=== PATIENT | female | born 1990 | race Caucasian/White ===

== ENCOUNTER → 2018-11-03 | Outpatient (CLI) | payer BC ==
[2018-11-03 07:39] LABS: Basophils % (A) 1 %; Eosinophils # (A) 0.3 k/uL (0-0.7); Eosinophils % (A) 4 %; HCT 38.6 % (34.0-46.0); HGB 12.5 gm/dL (11.4-16.0); Lymphocytes # (A) 1.8 k/uL (1.0-4.8); Lymphocytes % (A) 24 %; MCH 27.6 pg (25.0-35.0); MCHC 32.3 g/dL (31.0-37.0); MCV 85.3 fL (80.0-100.0); Mean Platelet Volume 6.6; Monocytes # (A) 0.6 k/uL (0-1.0); Monocytes % (A) 8 %; Neutrophils # (A) 4.5 k/uL (1.3-7.7); Neutrophils % (A) 62 %; Platelet Count 475 k/uL (150-450); RBC 4.53 m/uL (3.80-5.40); RDW 13.9 % (11.5-15.5); WBC 7.3 k/uL (3.8-10.6)
--- NOTE | 2018-11-03 07:42 | US ---
EXAMINATION TYPE: US abdomen complete DATE OF EXAM: 11/03/2018 COMPARISON: NONE CLINICAL HISTORY: epigastric pain R10.13,R10.11. x 1.5 months. Nausea vomiting with episodes of pain . EXAM MEASUREMENTS: Liver Length: 14.8 cm Gallbladder Wall: 0.1 cm CBD: 0.2 cm Spleen: 8.5 cm Right Kidney: 10.9 x 5.2 x 4.9 cm Left Kidney: 10.6 X 5.5 X 5.1 cm Pancreas: Partially Obscured by bowel gas Liver: wnl Gallbladder: No stones seen Evidence for sonographic Segura's sign: No CBD: wnl Spleen: wnl Right Kidney: No hydronephrosis or masses seen Left Kidney: No hydronephrosis or masses seen Upper IVC: wnl Abd Aorta: wnl The liver is homogenous. The intrahepatic portion of the IVC and proximal abdominal aorta are within normal limits. There is no evidence of cholelithiasis. Common bile duct is unremarkable. The visu alized portions of the pancreas are homogenous. The spleen is unremarkable. Kidneys are symmetric a nd free of hydronephrosis. No renal lesions are seen. IMPRESSION: No distinct abnormality appreciated.
[2018-11-03 07:56] LABS: ALT 33 U/L (9-52); AST 24 U/L (14-36); Albumin 3.7 g/dL (3.5-5.0); Alkaline Phosphatase 84 U/L (38-126); Amylase 46 U/L (30-110); Anion Gap 5 mmol/L; Blood Urea Nitrogen 14 mg/dL (7-17); Calcium 9.1 mg/dL (8.4-10.2); Carbon Dioxide 28 mmol/L (22-30); Chloride 107 mmol/L (98-107); Glucose 79 mg/dL (74-99); Lipase 79 U/L (23-300); Sodium 140 mmol/L (137-145); Total Bilirubin 0.5 mg/dL (0.2-1.3); Total Protein 6.7 g/dL (6.3-8.2)
== END ==
LOC: RADUSWWP 06:45
PROVIDERS: ATTEND Family Medicine
DX: R10.13 Epigastric pain (principal); R10.11 Right upper quadrant pain
CPT/HCPCS: 36415; 76700; 80053; 82150; 83690; 85025

== ENCOUNTER 2018-11-10 09:21 | Inpatient (IN) | payer BC ==
[2018-11-10] MEDS ORDERED: MAG HYDROX/AL HYDROX/SIMETH 30 ML, HYOSCYAMINE ELIXIR 10 ML, CIMETIDINE HCL 300 MG, LID... PO STA ×4 (10:10)
[2018-11-10] MEDS ORDERED: SODIUM CHLORIDE 0.9% 1,000 ML IV ONE (10:11)
[2018-11-10 10:17] LABS: Amorphous Sediment,Urine Occasional /hpf; Appearance,Urine Cloudy (Clear); Bilirubin,Urine Negative (Negative); Blood,Urine Negative (Negative); Color,Urine Yellow; Glucose,Urine (UA) Negative (Negative); Ketones,Urine 2+ (Negative); Leukocyte Esterase,Urine Negative (Negative); Mucus,Urine Rare /hpf; Nitrite,Urine Negative (Negative); PH, Urine 8.5 (5.0-8.0); Protein,Urine 1+ (Negative); Squamous Epithelial Cell,Urine 5 /hpf (0-4); Urobilinogen,Urine <2.0 mg/dL (<2.0); WBC,Urine 1 /hpf (0-5)
[2018-11-10 10:29] LABS: Basophils % (A) 0 %; Eosinophils # (A) 0.1 k/uL (0-0.7); Eosinophils % (A) 1 %; HCT 39.3 % (34.0-46.0); Lymphocytes # (A) 0.7 k/uL (1.0-4.8); Lymphocytes % (A) 6 %; MCH 27.7 pg (25.0-35.0); MCHC 33.1 g/dL (31.0-37.0); MCV 83.8 fL (80.0-100.0); Mean Platelet Volume 6.6; Monocytes # (A) 0.3 k/uL (0-1.0); Monocytes % (A) 3 %; Neutrophils # (A) 10.7 k/uL (1.3-7.7); Neutrophils % (A) 91 %; Platelet Count 514 k/uL (150-450); RBC 4.69 m/uL (3.80-5.40); RDW 13.6 % (11.5-15.5); WBC 11.8 k/uL (3.8-10.6)
[2018-11-10 10:42] LABS: ALT 36 U/L (9-52); AST 29 U/L (14-36); Albumin 4.2 g/dL (3.5-5.0); Alkaline Phosphatase 117 U/L (38-126); Amylase 64 U/L (30-110); Anion Gap 7 mmol/L; Blood Urea Nitrogen 16 mg/dL (7-17); Carbon Dioxide 27 mmol/L (22-30); Chloride 106 mmol/L (98-107); Glucose 113 mg/dL (74-99); Lipase 81 U/L (23-300); Potassium 4.4 mmol/L (3.5-5.1); Sodium 140 mmol/L (137-145); Total Bilirubin 0.9 mg/dL (0.2-1.3); Total Protein 7.4 g/dL (6.3-8.2)
--- NOTE | 2018-11-10 10:58 | CT ---
EXAMINATION TYPE: CT abdomen pelvis w con DATE OF EXAM: 11/10/2018 HISTORY: epigastric pain CT DLP: 832.2mGycm Automated Exposure Control for Dose Reduction was Utilized. CONTRAST: CT scan of the abdomen and pelvis is performed without oral but with IV Contrast, patient injected wi th 100 mL of Isovue 300. COMPARISON: Complete abdominal ultrasound 1 week ago. FINDINGS: LUNG BASES: Dependent atelectasis both bases is present. LIVER/GB: No significant abnormality is appreciated. PANCREAS: No significant abnormality is seen. SPLEEN: No significant abnormality is seen. ADRENALS: No significant abnormality is seen. KIDNEYS: No significant abnormality is seen. BOWEL: Evaluation of bowel is suboptimal secondary to lack of enteric contrast. Fecal material is see n in nondistended colon. Cecum is felt within normal limits in the right lower quadrant. There is mil d wall thickening of the terminal ileum seen coronal image 44 which is poorly distended. There is mil d to moderate wall thickening of the distal ileum over a short to moderate segment extending into the pelvis proximal to this. In the pelvis there are fluid-filled dilated small bowel loops measuring up to 4.8 cm in diameter axial image 72 with mild to moderate wall thickening with abrupt transition at site of moderate wall thickening right pelvis axial image 71 and coronal image 45. There are air-flu id levels and prominent in dilated distal small bowel loops in the lower abdomen and upper pelvis. St omach is satisfactorily distended without suspicious wall thickening. Duodenum is poorly distended an d thus suboptimally evaluated. UTERUS/ADNEXA: Anteverted uterus is seen extending to the right of midline. LYMPH NODES: No greater than 1cm abdominal or pelvic lymph nodes are appreciated. OSSEOUS STRUCTURES: No significant abnormality is seen. OTHER: No significant additional abnormality is seen. IMPRESSION: There is distal small bowel obstruction likely on basis of a moderate distal enteritis wi th abrupt transition involving the distal ileum. Correlate for underlying inflammatory bowel or Crohn 's disease.
[2018-11-10] MEDS ORDERED: PIPERACILLIN-TAZOBACTAM 3.375 GM in SODIUM CHLORIDE 0.9% 100 ML IVPB STA (11:12)
[2018-11-10] MEDS ORDERED: MORPHINE SULFATE 4 MG/ML SYRINGE IV PRN (11:12)
[2018-11-10] MEDS ORDERED: ONDANSETRON 4 MG/2 ML VIAL IVP PRN (11:12)
[2018-11-10] MEDS ORDERED: NALOXONE 0.4 MG/ML 1 ML VIAL IV PRN (11:12)
--- NOTE | 2018-11-10 11:16 | ED ---
Abdominal Pain HPI - General Chief Complaint: Abdominal Pain Stated Complaint: abd pain Time Seen by Provider: 11/10/18 09:36 Source: patient Mode of arrival: ambulatory Limitations: no limitations - History of Present Illness Initial Comments: 28-year-old female presenting today for chief complaint of epigastric abdominal pain. Patient states the past 4 days she has had on and off epigastric pain. She states that it began this morning at 2 AM she states has been persistent and painful. She describes as sharp she denies any radiation. Patient denies any alleviating or aggravating factors. Patient states she had bowel movement this morning. Patient states she discussed his problem with primary care provider and has had outpatient US with no acute abnormalities. Patient was concerned symptoms persisted and presented for evaluation. Remaining review of systems negative patient denies fever chills night sweats jaundice melena hematochezia diarrhea vomiting chest pain or SOB. Upon arrival pt appears well, nontoxic. - Related Data Home Medications Medication Instructions Recorded Confirmed ALPRAZolam [Xanax] 0.25 mg PO BID PRN 11/10/18 11/10/18 Ca-D Glucarate 2 tab PO DAILY 11/10/18 11/10/18 Chococal 2 tab PO DAILY 11/10/18 11/10/18 Hci Plus 2 cap PO DAILY 11/10/18 11/10/18 Omeprazole 20 mg PO DAILY 11/10/18 11/10/18 buPROPion [Wellbutrin] 100 mg PO TID 11/10/18 11/10/18 Allergies Allergy/AdvReac Type Severity Reaction Status Date / Time procaine HCl [From Novocain] AdvReac Nausea & Verified 11/10/18 09:45 Vomiting sulfamethoxazole AdvReac Hallucinati Verified 11/10/18 09:45 [From Bactrim] ons trimethoprim [From Bactrim] AdvReac Hallucinati Verified 11/10/18 09:45 ons Review of Systems ROS Statement: Those systems with pertinent positive or pertinent negative responses have been documented in the HPI. ROS Other: All systems not noted in ROS Statement are negative. Past Medical History Past Medical History: No Reported History History of Any Multi-Drug Resistant Organisms: None Reported Past Surgical History: No Surgical Hx Reported Past Psychological History: No Psychological Hx Reported Smoking Status: Never smoker Past Alcohol Use History: None Reported Past Drug Use History: None Reported - Past Family History Father Family Medical History: No Reported History Additional Family Medical History / Comment(s): Father is a smoker. Mother Family Medical History: Cancer Additional Family Medical History / Comment(s): Leukemia. Mother is a smoker General Exam - General Exam Comments Initial Comments: General: The patient is awake and alert, in no distress, and does not appear acutely ill. Eye: Pupils are equal, round and reactive to light, extra-ocular movements are intact. No nystagmus. There is normal conjunctiva bilaterally. No signs of icterus. Ears, nose, mouth and throat: There are moist mucous membranes and no oral lesions. Neck: The neck is supple, there is no tenderness or JVD. Cardiovascular: There is a regular rate and rhythm. No murmur, rub or gallop is appreciated. Respiratory: Lungs are clear to auscultation, respirations are non-labored, breath sounds are equal. No wheezes, stridor, rales, or rhonchi. Gastrointestinal: Soft, non-distended, patient is tender to palpation of the epigastric region without masses or organomegaly noted. There is no rebound or guarding present. No CVA tenderness. Bowel sounds are unremarkable. Musculoskeletal: Normal ROM, no tenderness. Strength 5/5. Sensation intact. Pulses equal bilaterally 2+. Neurological: A&O x 3. CN II-XII intact, There are no obvious motor or sensory deficits. Coordination appears grossly intact. Speech is normal. Skin: Skin is warm and dry and no rashes or lesions are noted. Psychiatric: Cooperative, appropriate mood & affect, normal judgment. Limitations: no limitations Course Vital Signs 11/10/18 11/10/18 09:32 12:08 Temperature 98.5 F 98.5 F Pulse Rate 117 H 102 H Respiratory 18 18 Rate Blood Pressure 109/79 123/83 O2 Sat by Pulse 97 100 Oximetry Medical Decision Making - Medical Decision Making 28-year-old female presenting today for chief complaint epigastric pain. Ultrasound obtained earlier in the week he abnormalities. CT of the abdomen pelvis revealed air-fluid levels and findings consistent with small bowel obstruction of the jejunum. Patient was ordered nothing by mouth. Started on Zosyn. Patient given IV analgesics. Patient will be admitted for surgical consultation. Dr. Hunt attending provider is agreeable with plan and admission at this time. He spoke with the admitting provider no further orders at this time. Patient is agreeable to admission AND straight answer to the best lability prior to transfer to the floor. Patient remained stable in the emergency department. - Lab Data Result diagrams: 11/10/18 10:15 11/10/18 10:15 Lab Results 11/10/18 11/10/18 11/10/18 Range/Units 10:02 10:02 10:15 WBC (3.8-10.6) k/uL RBC (3.80-5.40) m/uL Hgb (11.4-16.0) gm/dL Hct (34.0-46.0) % MCV (80.0-100.0) fL MCH (25.0-35.0) pg MCHC (31.0-37.0) g/dL RDW (11.5-15.5) % Plt Count (150-450) k/uL Neutrophils % % Lymphocytes % % Monocytes % % Eosinophils % % Basophils % % Neutrophils # (1.3-7.7) k/uL Lymphocytes # (1.0-4.8) k/uL Monocytes # (0-1.0) k/uL Eosinophils # (0-0.7) k/uL Basophils # (0-0.2) k/uL ESR (0-20) mm/hr Sodium 140 (137-145) mmol/L Potassium 4.4 (3.5-5.1) mmol/L Chloride 106 (98-107) mmol/L Carbon Dioxide 27 (22-30) mmol/L Anion Gap 7 mmol/L BUN 16 (7-17) mg/dL Creatinine 0.66 (0.52-1.04) mg/dL Est GFR (CKD-EPI)AfAm >90 (>60 ml/min/1.73 sqM) Est GFR (CKD-EPI)NonAf >90 (>60 ml/min/1.73 sqM) Glucose 113 H (74-99) mg/dL Calcium 9.0 (8.4-10.2) mg/dL Total Bilirubin 0.9 (0.2-1.3) mg/dL AST 29 (14-36) U/L ALT 36 (9-52) U/L Alkaline Phosphatase 117 (38-126) U/L C-Reactive Protein (<10.0) mg/L Total Protein 7.4 (6.3-8.2) g/dL Albumin 4.2 (3.5-5.0) g/dL Amylase 64 (30-110) U/L Lipase 81 (23-300) U/L Urine Color Yellow Urine Appearance Cloudy H (Clear) Urine pH 8.5 H (5.0-8.0) Ur Specific Titus 1.030 (1.001-1.035) Urine Protein 1+ H (Negative) Urine Glucose (UA) Negative (Negative) Urine Ketones 2+ H (Negative) Urine Blood Negative (Negative) Urine Nitrite Negative (Negative) Urine Bilirubin Negative (Negative) Urine Urobilinogen <2.0 (<2.0) mg/dL Ur Leukocyte Esterase Negative (Negative) Urine WBC 1 (0-5) /hpf Ur Squamous Epith Cells 5 H (0-4) /hpf Amorphous Sediment Occasional H (None) /hpf Urine Mucus Rare H (None) /hpf Urine HCG, Qual Not Detected (Not Detectd) 11/10/18 11/10/18 11/10/18 Range/Units 10:15 10:15 10:15 WBC 11.8 H (3.8-10.6) k/uL RBC 4.69 (3.80-5.40) m/uL Hgb 13.0 (11.4-16.0) gm/dL Hct 39.3 (34.0-46.0) % MCV 83.8 (80.0-100.0) fL MCH 27.7 (25.0-35.0) pg MCHC 33.1 (31.0-37.0) g/dL RDW 13.6 (11.5-15.5) % Plt Count 514 H (150-450) k/uL Neutrophils % 91 % Lymphocytes % 6 % Monocytes % 3 % Eosinophils % 1 % Basophils % 0 % Neutrophils # 10.7 H (1.3-7.7) k/uL Lymphocytes # 0.7 L (1.0-4.8) k/uL Monocytes # 0.3 (0-1.0) k/uL Eosinophils # 0.1 (0-0.7) k/uL Basophils # 0.0 (0-0.2) k/uL ESR 15 (0-20) mm/hr Sodium (137-145) mmol/L Potassium (3.5-5.1) mmol/L Chloride (98-107) mmol/L Carbon Dioxide (22-30) mmol/L Anion Gap mmol/L BUN (7-17) mg/dL Creatinine (0.52-1.04) mg/dL Est GFR (CKD-EPI)AfAm (>60 ml/min/1.73 sqM) Est GFR (CKD-EPI)NonAf (>60 ml/min/1.73 sqM) Glucose (74-99) mg/dL Calcium (8.4-10.2) mg/dL Total Bilirubin (0.2-1.3) mg/dL AST (14-36) U/L ALT (9-52) U/L Alkaline Phosphatase (38-126) U/L C-Reactive Protein 13.9 H (<10.0) mg/L Total Protein (6.3-8.2) g/dL Albumin (3.5-5.0) g/dL Amylase (30-110) U/L Lipase (23-300) U/L Urine Color Urine Appearance (Clear) Urine pH (5.0-8.0) Ur Specific Titus (1.001-1.035) Urine Protein (Negative) Urine Glucose (UA) (Negative) Urine Ketones (Negative) Urine Blood (Negative) Urine Nitrite (Negative) Urine Bilirubin (Negative) Urine Urobilinogen (<2.0) mg/dL Ur Leukocyte Esterase (Negative) Urine WBC (0-5) /hpf Ur Squamous Epith Cells (0-4) /hpf Amorphous Sediment (None) /hpf Urine Mucus (None) /hpf Urine HCG, Qual (Not Detectd) Disposition Clinical Impression: Small bowel obstruction, Abdominal pain, Dehydration, Urine ketones, Vomiting, Leukocytosis Disposition: ADMITTED IP TO THIS [facility] Condition: Stable Is patient prescribed a controlled substance at d/c from ED?: No Time of Disposition: 11:15 Decision to Admit Reason: Admit from EC Decision Date: 11/10/18 Decision Time: 11:15
[2018-11-10] MEDS: SODIUM CHLORIDE 0.9% 1,000 ML IV SCH ×2 (12:06→21:15)
[2018-11-10] MEDS ORDERED: ACETAMINOPHEN TAB 325 MG TAB PO STA (12:37)
--- NOTE | 2018-11-10 15:28 | P.GSCN ---
History of Present Illness Consult date: 11/10/18 Reason for Consult: Small bowel obstruction History of present illness: This is a 28-year-old female who is admitted through the emergency room with complaints of abdominal pain and nausea. Patient states that she vomited multiple times last night. Patient CAT scan performed which shows a possible small bowel obstruction. Small bowel obstruction may be due to enteritis. Patient currently denies any significant abdominal pain or nausea. She states that she has had 3 or 4 attacks of similar symptoms over the last year. Past Medical History Past Medical History: GERD/Reflux, Pneumonia Additional Past Medical History / Comment(s): Headaches r/t menses, bronchitis, joint pain. History of Any Multi-Drug Resistant Organisms: None Reported Past Surgical History: No Surgical Hx Reported Additional Past Surgical History / Comment(s): wisdom teeth extractions Past Anesthesia/Blood Transfusion Reactions: No Reported Reaction Smoking Status: Never smoker - Past Family History Father Family Medical History: No Reported History Additional Family Medical History / Comment(s): Father is a smoker. Mother Family Medical History: Cancer Additional Family Medical History / Comment(s): Leukemia. Mother is a smoker Medications and Allergies Home Medications Medication Instructions Recorded Confirmed Type ALPRAZolam [Xanax] 0.25 mg PO BID PRN 11/10/18 11/10/18 History Ca-D Glucarate 2 tab PO DAILY 11/10/18 11/10/18 History Chococal 2 tab PO DAILY 11/10/18 11/10/18 History Hci Plus 2 cap PO DAILY 11/10/18 11/10/18 History Omeprazole 20 mg PO DAILY 11/10/18 11/10/18 History buPROPion [Wellbutrin] 100 mg PO TID 11/10/18 11/10/18 History Allergies Allergy/AdvReac Type Severity Reaction Status Date / Time procaine HCl [From Novocain] AdvReac Nausea & Verified 11/10/18 09:45 Vomiting sulfamethoxazole AdvReac Hallucinati Verified 11/10/18 09:45 [From Bactrim] ons trimethoprim [From Bactrim] AdvReac Hallucinati Verified 11/10/18 09:45 ons Surgical - Exam Vital Signs Temp Pulse Resp BP Pulse Ox 98.5 F 117 H 18 109/79 97 11/10/18 09:32 11/10/18 09:32 11/10/18 09:32 11/10/18 09:32 11/10/18 09:32 - General well developed, well nourished, no distress - Eyes PERRL - ENT normal pinna - Neck no masses - Respiratory normal expansion - Cardiovascular Rhythm: regular - Abdomen Abdomen: soft, non tender Results - Labs 11/10/18 10:15 11/10/18 10:15 Abnormal Lab Results - Last 24 Hours (Table) 11/10/18 11/10/18 11/10/18 Range/Units 10:02 10:15 10:15 WBC 11.8 H (3.8-10.6) k/uL Plt Count 514 H (150-450) k/uL Neutrophils # 10.7 H (1.3-7.7) k/uL Lymphocytes # 0.7 L (1.0-4.8) k/uL Glucose 113 H (74-99) mg/dL Urine Appearance Cloudy H (Clear) Urine pH 8.5 H (5.0-8.0) Urine Protein 1+ H (Negative) Urine Ketones 2+ H (Negative) Ur Squamous Epith Cells 5 H (0-4) /hpf Amorphous Sediment Occasional H (None) /hpf Urine Mucus Rare H (None) /hpf Diabetes panel 11/10/18 Range/Units 10:15 Sodium 140 (137-145) mmol/L Potassium 4.4 (3.5-5.1) mmol/L Chloride 106 (98-107) mmol/L Carbon Dioxide 27 (22-30) mmol/L BUN 16 (7-17) mg/dL Creatinine 0.66 (0.52-1.04) mg/dL Glucose 113 H (74-99) mg/dL Calcium 9.0 (8.4-10.2) mg/dL AST 29 (14-36) U/L ALT 36 (9-52) U/L Alkaline Phosphatase 117 (38-126) U/L Total Protein 7.4 (6.3-8.2) g/dL Albumin 4.2 (3.5-5.0) g/dL Calcium panel 11/10/18 Range/Units 10:15 Calcium 9.0 (8.4-10.2) mg/dL Albumin 4.2 (3.5-5.0) g/dL Pituitary panel 11/10/18 Range/Units 10:15 Sodium 140 (137-145) mmol/L Potassium 4.4 (3.5-5.1) mmol/L Chloride 106 (98-107) mmol/L Carbon Dioxide 27 (22-30) mmol/L BUN 16 (7-17) mg/dL Creatinine 0.66 (0.52-1.04) mg/dL Glucose 113 H (74-99) mg/dL Calcium 9.0 (8.4-10.2) mg/dL Adrenal panel 11/10/18 Range/Units 10:15 Sodium 140 (137-145) mmol/L Potassium 4.4 (3.5-5.1) mmol/L Chloride 106 (98-107) mmol/L Carbon Dioxide 27 (22-30) mmol/L BUN 16 (7-17) mg/dL Creatinine 0.66 (0.52-1.04) mg/dL Glucose 113 H (74-99) mg/dL Calcium 9.0 (8.4-10.2) mg/dL Total Bilirubin 0.9 (0.2-1.3) mg/dL AST 29 (14-36) U/L ALT 36 (9-52) U/L Alkaline Phosphatase 117 (38-126) U/L Total Protein 7.4 (6.3-8.2) g/dL Albumin 4.2 (3.5-5.0) g/dL - Imaging CT scan - abdomen: report reviewed (Small bowel obstruction with transition point in distal ileum.) Assessment and Plan Assessment: Ethan obstruction. Patient be observed. She'll undergo repeat CAT scan to see if her small bowel obstruction has improved. If there is no resolution of this she will undergo exploratory laparotomy with possible small bowel resection.
[2018-11-10] MEDS ORDERED: KETOROLAC 30 MG/ML 1 ML VIAL IVP PRN (15:47)
[2018-11-10] MEDS ORDERED: ALPRAZolam 0.25 MG TAB PO PRN (15:56)
--- NOTE | 2018-11-10 16:03 | P.HPIM ---
History of Present Illness Patient is a pleasant 28-year-old female came in with complaints of severe abdominal pain nausea vomiting multiple episodes which started last night lasted until today morning. Patient the pain is better still have moderate amount of pain at this time diffuse pain nonradiating sharp in nature. Patient had a CAT scan of the abdomen which showed air-fluid levels consistent with a gastritis about obstruction patient had normal bowel movements. Patient appears to have significant enteritis mostly involving the distal ileum suspicious for Crohn's ileitis. Patient had similar symptoms about 4 episodes in the last few months. Initially thought to have well gastroenteritis. Patient is presently night shifts general surgery was consulted Gen. surgery evaluated the patient and discussed with Gen. surgery recommending conservative measures including, including nothing by mouth except for ice chips and if she doesn't improve recommending laparotomy. Patient denied any family history of Crohn's disease. Review of Systems REVIEW OF SYSTEMS: CONSTITUTIONAL: No fever, no malaise, no fatigue. HEENT: No recent visual problems or hearing problems. Denied any sore throat. CARDIOVASCULAR: No chest pain, orthopnea, PND, no palpitations, no syncope. PULMONARY: No shortness of breath, no cough, no hemoptysis. GASTROINTESTINAL: As mentioned in HPI NEUROLOGICAL: No headaches, no weakness, no numbness. HEMATOLOGICAL: Denies any bleeding or petechiae. GENITOURINARY: Denies any burning micturition, frequency, or urgency. MUSCULOSKELETAL/RHEUMATOLOGICAL: Denies any joint pain, swelling, or any muscle pain. ENDOCRINE: Denies any polyuria or polydipsia. The rest of the 14-point review of systems is negative. Past Medical History Past Medical History: GERD/Reflux, Pneumonia Additional Past Medical History / Comment(s): Headaches r/t menses, bronchitis, joint pain. History of Any Multi-Drug Resistant Organisms: None Reported Past Surgical History: No Surgical Hx Reported Additional Past Surgical History / Comment(s): wisdom teeth extractions Past Anesthesia/Blood Transfusion Reactions: No Reported Reaction Smoking Status: Never smoker - Past Family History Father Family Medical History: No Reported History Additional Family Medical History / Comment(s): Father is a smoker. Mother Family Medical History: Cancer Additional Family Medical History / Comment(s): Leukemia. Mother is a smoker Medications and Allergies Home Medications Medication Instructions Recorded Confirmed Type ALPRAZolam [Xanax] 0.25 mg PO BID PRN 11/10/18 11/10/18 History Ca-D Glucarate 2 tab PO DAILY 11/10/18 11/10/18 History Chococal 2 tab PO DAILY 11/10/18 11/10/18 History Hci Plus 2 cap PO DAILY 11/10/18 11/10/18 History Omeprazole 20 mg PO DAILY 11/10/18 11/10/18 History buPROPion [Wellbutrin] 100 mg PO TID 11/10/18 11/10/18 History Allergies Allergy/AdvReac Type Severity Reaction Status Date / Time procaine HCl [From Novocain] AdvReac Nausea & Verified 11/10/18 09:45 Vomiting sulfamethoxazole AdvReac Hallucinati Verified 11/10/18 09:45 [From Bactrim] ons trimethoprim [From Bactrim] AdvReac Hallucinati Verified 11/10/18 09:45 ons Physical Exam Vitals: Vital Signs Temp Pulse Pulse Resp BP BP Pulse Ox 11/10/18 14:34 97.6 F 115 H 16 125/80 100 11/10/18 12:24 98.0 F 100 16 131/84 97 11/10/18 12:08 98.5 F 102 H 18 123/83 100 11/10/18 09:32 98.5 F 117 H 18 109/79 97 Intake and Output 11/10/18 11/10/18 11/10/18 06:59 14:59 22:59 Other: Weight 72.575 kg PHYSICAL EXAMINATION: GENERAL: The patient is alert and oriented x3, not in any acute distress. Well developed, well nourished. HEENT: Pupils are round and equally reacting to light. EOMI. No scleral icterus. No conjunctival pallor. Normocephalic, atraumatic. No pharyngeal erythema. No thyromegaly. CARDIOVASCULAR: S1 and S2 present. No murmurs, rubs, or gallops. PULMONARY: Chest is clear to auscultation, no wheezing or crackles. ABDOMEN: minimal diffuse tenderness with mild distention, , normoactive bowel sounds. No palpable organomegaly. MUSCULOSKELETAL: No joint swelling or deformity. EXTREMITIES: No cyanosis, clubbing, or pedal edema. NEUROLOGICAL: Gross neurological examination did not reveal any focal deficits. SKIN: No rashes. Results CBC & Chem 7: 11/10/18 10:15 11/10/18 10:15 Labs: Abnormal Lab Results - Last 24 Hours (Table) 11/10/18 11/10/18 11/10/18 Range/Units 10:02 10:15 10:15 WBC 11.8 H (3.8-10.6) k/uL Plt Count 514 H (150-450) k/uL Neutrophils # 10.7 H (1.3-7.7) k/uL Lymphocytes # 0.7 L (1.0-4.8) k/uL Glucose 113 H (74-99) mg/dL Urine Appearance Cloudy H (Clear) Urine pH 8.5 H (5.0-8.0) Urine Protein 1+ H (Negative) Urine Ketones 2+ H (Negative) Ur Squamous Epith Cells 5 H (0-4) /hpf Amorphous Sediment Occasional H (None) /hpf Urine Mucus Rare H (None) /hpf Thrombosis Risk Factor Assmnt - Choose All That Apply Any of the Below Risk Factors Present?: Yes Each Factor Represents 1 point: Obesity (BMI >25) Other Risk Factors: No Other congenital or acquired thrombophilia - If yes, enter type in comment: No Thrombosis Risk Factor Assessment Total Risk Factor Score: 1 Thrombosis Risk Factor Assessment Level: Low Risk Assessment and Plan Plan: Abdominal pain nausea vomiting: Secondary to either enteritis and partial small bowel obstruction conservative measures general surgery evaluation as mentioned above, with IV fluids shifts advance diet as tolerated. Crohn's colitis is definitely a consideration considering her multiple recent episodes, age involvement of distal small bowel. -Leukocytosis reactive Have and tachycardia secondary to possible intravascular volume depletion and pain DVT prophylaxis: Early ambulation
[2018-11-10] MEDS: PANTOPRAZOLE 40 MG/10 ML VIAL IVP SCH (16:41)
[2018-11-10] MEDS: buPROPion 100 MG TAB PO SCH ×2 (16:41→21:15)
[2018-11-11] MEDS: SODIUM CHLORIDE 0.9% 1,000 ML IV SCH ×2 (06:47→14:49)
[2018-11-11 08:12] LABS: Anion Gap 5 mmol/L; Blood Urea Nitrogen 9 mg/dL (7-17); Calcium 8.2 mg/dL (8.4-10.2); Carbon Dioxide 22 mmol/L (22-30); Chloride 114 mmol/L (98-107); Glucose 79 mg/dL (74-99); Potassium 4.2 mmol/L (3.5-5.1); Sodium 141 mmol/L (137-145)
[2018-11-11 08:24] LABS: HCT 34.7 % (34.0-46.0); HGB 11.4 gm/dL (11.4-16.0); MCH 27.9 pg (25.0-35.0); MCHC 32.9 g/dL (31.0-37.0); MCV 84.9 fL (80.0-100.0); Mean Platelet Volume 6.7; Platelet Count 393 k/uL (150-450); RBC 4.09 m/uL (3.80-5.40); RDW 13.5 % (11.5-15.5); WBC 4.6 k/uL (3.8-10.6)
[2018-11-11] MEDS: PANTOPRAZOLE 40 MG/10 ML VIAL IVP SCH (08:59)
[2018-11-11] MEDS: buPROPion 100 MG TAB PO SCH ×3 (08:59→22:06)
--- NOTE | 2018-11-11 09:09 | P.PN ---
Progress Note - Text Progress Note Date: 11/11/18 Patient has some complaints of nausea last night. She denies any significant abdominal pain this morning. On exam her vital signs are stable. Her abdomen soft. Patient be scheduled for computed tomography scan of the abdomen and pelvis with oral contrast. If there is still a significant transition point causing a small bowel obstruction she will require small bowel resection. If the the small obstruction is resolved she will start on a diet.
[2018-11-11] MEDS: IOPAMIDOL-300 CONTRAST 30 ML VIAL (ORAL USE) PO PRN ×2 (09:17→10:16)
[2018-11-11] MEDS: LORATADINE-PSEUDOEPH 5-120 MG 1 EACH TAB.ER.12H PO PRN (10:22)
--- NOTE | 2018-11-11 12:04 | CT ---
EXAMINATION TYPE: CT abdomen pelvis wo con DATE OF EXAM: 11/11/2018 COMPARISON: Previous study from yesterday. HISTORY: small bowel obstruction CT DLP: 521.5 mGycm Automated exposure control for dose reduction was used. FINDINGS: There is atelectatic change at the lung bases. There is no pleural or pericardial fluid. Th e heart is not enlarged. Within the abdomen, liver and spleen are unremarkable. The gallbladder is not identified. Both adrenal glands are normal. There is no evidence of nephrolithiasis or hydronephrosis. Limited views of the pancreas are unremarkable. There is no significant retroperitoneal, iliac or inguinal adenopathy. The bladder is normal in appearance. The uterus is unremarkable. There is follicular change present in the ovaries. There is no significant diverticular change and there is no radiographic evidence of diverticulitis. There is some contrast within the colon. The appendix is not visualized with certainty. There is approximately 5 mm area of filling defect within the proximal small bowel which may represen t an intussusception. This cannot be well appreciated on the previous study. There is an additional 4 cm area of annular narrowing in the distal small bowel and there is adjacent thickening of the small bowel. The overall degree of small bowel dilatation may have improved slightly from previous. There is no contrast in the colon at this point. There is no free fluid and no free air. No bony lesion is seen. IMPRESSION: 1. CONTINUING, MILD SMALL BOWEL OBSTRUCTION. 2. AREAS OF MUCOSAL THICKENING WITHIN THE SMALL BOWEL WITH A QUESTIONABLE INTUSSUSCEPTION ON THE LEFT . ENTERITIS MAY BE THE CAUSE. PLEASE CORRELATE CLINICALLY.
--- NOTE | 2018-11-11 16:09 | P.PN ---
Subjective 8-year-old female was admitted secondary to partial small bowel obstruction repeat CAT scan did show intussusception no improvement in her obstruction although patient is clinically doing well and able to tolerate full liquid diet well. Patient's abdominal pain improved. Patient looks really well at this time. Patient will be continued on IV fluids. Constitutional: Denied any fatigue denied any fever. Cardio vascular: denied any chest pain, palpitations Gastrointestinal denied any nausea vomiting Pulmonary: Denied any shortness of breath cough Neurologic denied any new focal deficits All inpatient medications were reviewed and appropriate changes in these medications as dictated in the interval history and assessment and plan. Objective - Vital Signs Vital signs: Vital Signs Temp 98.0 F 11/11/18 11:50 Pulse 93 11/11/18 11:50 Resp 16 11/11/18 11:50 BP 105/71 11/11/18 11:50 Pulse Ox 98 11/11/18 11:50 Intake & Output 11/10/18 11/11/18 11/11/18 18:59 06:59 18:59 Intake Total 60 Balance 60 Weight 72.575 kg Intake: Oral 60 Other: Voiding Method Toilet # Voids 1 2 - Exam PHYSICAL EXAMINATION: GENERAL: The patient is alert and oriented x3, not in any acute distress. Well developed, well nourished. HEENT: Pupils are round and equally reacting to light. EOMI. No scleral icterus. No conjunctival pallor. Normocephalic, atraumatic. No pharyngeal erythema. No thyromegaly. CARDIOVASCULAR: S1 and S2 present. No murmurs, rubs, or gallops. PULMONARY: Chest is clear to auscultation, no wheezing or crackles. ABDOMEN: Soft, nontender, nondistended, normoactive bowel sounds. No palpable organomegaly. MUSCULOSKELETAL: No joint swelling or deformity. EXTREMITIES: No cyanosis, clubbing, or pedal edema. NEUROLOGICAL: Gross neurological examination did not reveal any focal deficits. SKIN: No rashes. - Labs CBC & Chem 7: 11/11/18 07:39 11/11/18 07:39 Labs: Abnormal Lab Results - Last 24 Hours (Table) 11/10/18 11/11/18 Range/Units 10:15 07:39 Chloride 114 H (98-107) mmol/L Calcium 8.2 L (8.4-10.2) mg/dL C-Reactive Protein 13.9 H (<10.0) mg/L Assessment and Plan Plan: Abdominal pain nausea vomiting: Secondary to either enteritis and partial small bowel obstruction, possibility of intussusception conservative measures general surgery evaluation as mentioned above, with IV fluids shifts advance diet as elyse erated. Crohn's colitis is definitely a consideration considering her multiple recent episodes, age involvement of distal small bowel. -Leukocytosis reactive Sinus tachycardia secondary to possible intravascular volume depletion and pain, improved now with IV fluids DVT prophylaxis: Early ambulation
[2018-11-12] MEDS: SODIUM CHLORIDE 0.9% 1,000 ML IV SCH (08:11)
[2018-11-12] MEDS: buPROPion 100 MG TAB PO SCH (08:11)
[2018-11-12] MEDS: PANTOPRAZOLE 40 MG/10 ML VIAL IVP SCH (08:11)
[2018-11-12] MEDS: LORATADINE-PSEUDOEPH 5-120 MG 1 EACH TAB.ER.12H PO PRN (08:11)
[2018-11-12 09:01] VITALS: BP 122/67; PULSE 99; RESP 16; TEMP 98
--- NOTE | 2018-11-12 10:48 | P.DS ---
Providers Date of admission: 11/10/18 11:19 Attending physician: John Marshall Consults: 11/10/18 11:12 Consult Physician Urgent Consulting Provider: Den Goldman Consult Reason/Comments: SBO Do you want consulting provider notified?: Yes Primary care physician: Jaqui Ford [facility] Course: 28-year-old female was admitted secondary to partial small bowel obstruction repeat CAT scan did show intussusception no improvement in her obstruction although patient is clinically doing well and able to tolerate full liquid diet well. Patient's abdominal pain improved. Patient looks really well at this time. Patient will be continued on IV fluids. 11/12/2018 No overnight events patient is clinically doing well and Gen. surgery recommending discharging the patient and follow-up as an outpatient for outpatient laparotomy. PHYSICAL EXAMINATION: GENERAL: The patient is alert and oriented x3, not in any acute distress. Well developed, well nourished. HEENT: Pupils are round and equally reacting to light. EOMI. No scleral icterus. No conjunctival pallor. Normocephalic, atraumatic. No pharyngeal erythema. No thyromegaly. CARDIOVASCULAR: S1 and S2 present. No murmurs, rubs, or gallops. PULMONARY: Chest is clear to auscultation, no wheezing or crackles. ABDOMEN: Soft, nontender, nondistended, normoactive bowel sounds. No palpable organomegaly. MUSCULOSKELETAL: No joint swelling or deformity. EXTREMITIES: No cyanosis, clubbing, or pedal edema. NEUROLOGICAL: Gross neurological examination did not reveal any focal deficits. SKIN: No rashes. Assessment and Plan Plan: Abdominal pain nausea vomiting: Secondary to either enteritis and partial small bowel obstruction, possibility of intussusception conservative measures, improved with conservative measures patient will be discharged today -Leukocytosis reactive, no need for antibiotics Sinus tachycardia secondary to possible intravascular volume depletion and pain, improved now with IV fluids Patient Condition at Discharge: Stable Plan - Discharge Summary Discharge Rx Participant: No New Discharge Prescriptions: Continue buPROPion [Wellbutrin] 100 mg PO TID Omeprazole 20 mg PO DAILY ALPRAZolam [Xanax] 0.25 mg PO BID PRN PRN Reason: Anxiety Hci Plus 2 cap PO DAILY Chococal 2 tab PO DAILY Ca-D Glucarate 2 tab PO DAILY Discharge Medication List ALPRAZolam [Xanax] 0.25 mg PO BID PRN 11/10/18 [History] Ca-D Glucarate 2 tab PO DAILY 11/10/18 [History] Chococal 2 tab PO DAILY 11/10/18 [History] Hci Plus 2 cap PO DAILY 11/10/18 [History] Omeprazole 20 mg PO DAILY 11/10/18 [History] buPROPion [Wellbutrin] 100 mg PO TID 11/10/18 [History] Follow up Appointment(s)/Referral(s): Jaqui Nobles III, MD [Primary Care Provider] - 3 Days Den Goldman MD [STAFF PHYSICIAN] - 11/14/18 1:15 pm (per Dr. Goldman to be seen to schedule surgery) Activity/Diet/Wound Care/Special Instructions: full liquids and soft foods only per physician. Follow up with surgeon as directed to schedule procedure. call physician with any questions comments concerns worsening returning symptoms, fever, 101.1 or higher, pain not controlled by over the counter medications, not tolerating diet or fluids.
--- NOTE | 2018-11-12 11:17 | P.PN ---
Progress Note - Text Progress Note Date: 11/12/18 Patient's feeling better. Her CAT scan performed yesterday shows a area of the terminal ileum with a 4 cm long stricture. She has been tolerating clear liquids overnight. On exam her vital signs are stable. Her abdomen soft. There is no significant pain. Recurrent small bowel obstruction related to small bowel stricture. Patiently discharged home on full liquids. She'll follow-up in the office on Tuesday. We will plan for outpatient surgical intervention.
== END 2018-11-12 11:21 | disposition home or self-care (01) | DRG 390 ==
LOC: EC 09:21 → 4SSUR 11:19 → 6PED 22:05
PROVIDERS: ADMIT Hospitalist; ATTEND Hospitalist
DX: K56.690 Other partial intestinal obstruction (principal); K56.1 Intussusception; Z80.6 Family history of leukemia; K52.9 Noninfective gastroenteritis and colitis, unspecified; K29.70 Gastritis, unspecified, without bleeding; K21.9 Gastro-esophageal reflux disease without esophagitis; E86.0 Dehydration; E86.9 Volume depletion, unspecified; Z79.899 Other long term (current) drug therapy; Z88.4 Allergy status to anesthetic agent; Z88.2 Allergy status to sulfonamides; Z88.8 Allergy status to other drugs, medicaments and biological substances; R00.0 Tachycardia, unspecified; D72.828 Other elevated white blood cell count
CPT/HCPCS: 36415; 74176; 74177; 80048; 80053; 81001; 81025; 82150; 83690; 85025; 85027; 85652; 86140; 99285

== ENCOUNTER → 2018-11-20 | Outpatient (CLI) | payer BC ==
--- NOTE | 2018-11-20 20:50 | CT ---
EXAMINATION TYPE: CT abdomen pelvis w con DATE OF EXAM: 11/20/2018 COMPARISON: 11/11/2018 HISTORY: Small bowel obstruction. CT DLP: 1108 mGycm Automated exposure control for dose reduction was used. CONTRAST: CT scan of the abdomen pelvis is performed with IV Contrast, patient injected with 100ml mL of Isovue 300. FINDINGS- LUNG BASES-millimeter nodule left lower lobe image 7 to small to characterize.. LIVER/GB- No gross abnormality is appreciated. PANCREAS- No gross abnormality is seen. SPLEEN- No gross abnormality is seen. ADRENALS- No gross abnormality is seen. KIDNEY: Mild pelvic caliectasis on the right. No hydronephrosis on the left. No renal mass. BOWEL-there is persistent dilation of the distal ileum with areas of marked wall thickening. More nor mal caliber is seen at the level of the terminal ileum. Correlate for enteritis or inflammatory bowel disease. Previously noted intussusception is not currently seen on today's exam and therefore may be on the basis of a transitory in this region which could be recurrent.. Retained fecal debris through out the colon. LYMPH NODES- No greater than 1cm abdominal or pelvic lymph nodes areappreciated. OSSEOUS STRUCTURES- No significant abnormality is seen. Suggestion of a spina bifida occulta at the lumbosacral junction. OTHER- no free fluid. There is limited assessment of vasculature due to suboptimal opacification. Ao rta of normal caliber. 1 cm ovarian cyst on the right incidentally noted. There is a normal variant a natomy of the celiac axis with separate origins of the hepatic and splenic arteries. IMPRESSION- 1. There is persistent marked thickening of several centimeters of the distal ileum just proximal to the terminal ileum compatible with an enteritis. Inflammatory bowel disease including Crohn's disease including a stricture within the differential diagnosis. Mucosal lesion is not excluded. Follow to r esolution recommended. Other etiologies including infectious or ischemic enteritis not excluded. Find ings appear mildly improved relative to the prior exam. There is a degree of proximal small bowel dil ation and therefore a mild partial obstructive pattern in the differential diagnosis. 2. Prior exam demonstrated a area of small bowel intussusception appears transitory, and is not clear ly depicted on today's exam. It could be recurrent correlate clinically. 3. There is mild pelvic caliectasis on the right. 4 2 mm left lower lobe pulmonary nodule too small t o characterize.
== END ==
LOC: RADCTMAIN 16:05
PROVIDERS: ATTEND Surgery
DX: K50.90 Crohn's disease, unspecified, without complications (principal); K59.8 Other specified functional intestinal disorders; N28.89 Other specified disorders of kidney and ureter; K56.609 Unspecified intestinal obstruction, unspecified as to partial versus complete obstruction
CPT/HCPCS: 74177; Q9967 ×2

== ENCOUNTER 2018-11-23 08:22 | Inpatient (IN) | payer BC ==
[~2018-11-23 08:22] MED LIST: DEXAMETHASONE SOD PHOSPHATE 10 MG/ML 1 ML VIAL IV ONE; HEPARIN SODIUM,PORCINE 5,000 UNIT/ML 1 ML VIAL SQ ONE; HYDROmorphone 0.5 MG/0.5 ML SYRINGE IVP PRN; LIDOCAINE 1% 20 ML VIAL (10MG/ML) FOR IV START INTRADERMA PRN; MIDAZOLAM 2 MG/2 ML VIAL IV PRN; ONDANSETRON 4 MG/2 ML VIAL IVP ONE; SCOPOLAMINE 1.5MG/72HR PATCH TRANSDERM ONE; ceFAZolin IN SWFI 2 GM/20 ML SYRINGE IVP ONE; metroNIDAZOLE-NS PMX 500 MG in SALINE 1 100ML.BAG IVPB ONE
[2018-11-23] MEDS: LACTATED RINGERS 1,000 ML IV SCH (09:11)
--- NOTE | 2018-11-23 09:15 | P.GSHP ---
History of Present Illness H&P Date: 11/23/18 Chief Complaint: Small bowel obstruction This a 28-year-old female with a chronic small bowel obstruction. 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 Patient resents today for small bowel resection. Past Medical History Past Medical History: No Reported History Additional Past Medical History / Comment(s): NOVEMBER 10- ADMITTED FOR SBO, POSSIBLE CHROHN'S OR COLITIS. Headaches r/t menses. BROnchitis. Joint pain- CAUSE UNDETERMINED. History of Any Multi-Drug Resistant Organisms: None Reported Past Surgical History: No Surgical Hx Reported Additional Past Surgical History / Comment(s): wisdom teeth wisdom Past Anesthesia/Blood Transfusion Reactions: Motion Sickness, Postoperative Nausea & Vomiting (PONV) Additional Past Anesthesia/Blood Transfusion Reaction / Comment(s): never general anesthesia. Past Psychological History: No Psychological Hx Reported Additional Psychological History / Comment(s): Pt resides with her spouse. She is independent. Smoking Status: Never smoker Past Alcohol Use History: None Reported Past Drug Use History: None Reported - Past Family History Father Family Medical History: No Reported History Additional Family Medical History / Comment(s): Father is a smoker. Mother Family Medical History: Cancer Additional Family Medical History / Comment(s): Leukemia. May have some clotting issues. Mother is a smoker Medications and Allergies Home Medications Medication Instructions Recorded Confirmed Type ALPRAZolam [Xanax] 0.25 mg PO BID PRN 11/10/18 11/17/18 History Omeprazole 20 mg PO QAM 11/10/18 11/17/18 History buPROPion [Wellbutrin] 100 mg PO TID 11/10/18 11/17/18 History Allergies Allergy/AdvReac Type Severity Reaction Status Date / Time procaine HCl [From Novocain] AdvReac Nausea & Verified 11/17/18 15:41 Vomiting sulfamethoxazole AdvReac Hallucinati Verified 11/17/18 15:41 [From Bactrim] ons trimethoprim [From Bactrim] AdvReac Hallucinati Verified 11/17/18 15:41 ons Surgical - Exam Vital Signs Temp Pulse Resp BP Pulse Ox 98.4 F 106 H 16 122/76 100 11/23/18 09:02 11/23/18 09:02 11/23/18 09:02 11/23/18 09:02 11/23/18 09:02 - General well developed, well nourished, no distress - Eyes PERRL - ENT normal pinna - Neck no masses - Respiratory normal expansion - Cardiovascular Rhythm: regular - Abdomen Abdomen: soft, non tender Assessment and Plan Assessment: Small obstruction secondary to stricture of ileum. Patient will undergo small bowel resection.
[2018-11-23] MEDS ORDERED: MIDAZOLAM 2 MG/2 ML VIAL ONE (09:48)
[2018-11-23] MEDS ORDERED: ROCURONIUM BROMIDE 10 MG/ML 10 ML VIAL IV ONE (09:48)
[2018-11-23] MEDS ORDERED: PROPOFOL 10 MG/ML 20 ML VIAL IV ONE (09:48)
[2018-11-23] MEDS ORDERED: NEOSTIGMINE 1 MG/ML 10 ML VIAL ONE (09:48)
[2018-11-23] MEDS ORDERED: GLYCOPYRROLATE 0.2 MG/ML 2 ML VIAL ONE (09:48)
[2018-11-23] MEDS ORDERED: LIDOCAINE 1% INJ 10MG/ML (20 ML MDV) ONE (09:48)
[2018-11-23] MEDS ORDERED: SUCCINYLCHOLINE CHLORIDE 100 MG/5 ML SYR IV ONE (09:48)
[2018-11-23] MEDS ORDERED: fentaNYL (PF) 50 MCG/ML 2 ML AMP ONE (09:48)
[2018-11-23] MEDS ORDERED: NALOXONE 0.4 MG/ML 1 ML VIAL IV PRN (10:35)
[2018-11-23] MEDS ORDERED: METOCLOPRAMIDE 5 MG/ML 2 ML VIAL IVP PRN (11:00)
--- NOTE | 2018-11-23 11:00 | P.OP ---
Date of Procedure: 11/23/18 Preoperative Diagnosis: Small bowel obstruction Postoperative Diagnosis: Small bowel obstruction secondary to enteritis with stricture Procedure(s) Performed: Ileocolectomy Anesthesia: BENJAMIN Surgeon: Den Goldman Estimated Blood Loss (ml): 20 Pathology: other (Ileocolectomy) Condition: stable Disposition: PACU Description of Procedure: The patient's placed on the operative table in supine position. She received general anesthesia. Her abdomen was prepped and draped usual sterile fashion. A periumbilical skin incision was made. And then using electrocautery the subcutaneous tissue divided. The fascia was opened midline. The small bowel was visualized. The small bowel appeared to be dilated. This was run down towards the cecum. And at a level approximately 6 inches the cecum there was evidence of 2 small bowel strictures. The inflammation of the small bowel e xtended right to the ileocecal valve. At this point it was decided to perform a ileocolectomy. The proximal small bowel was transected suitable spot using the TAYLOR stapler. And then the right colon was transected just above the cecum. Using the linear stapler. Using the Enseal device the mesentery the bowel was divided. The specimens of pathology. A [id number] functional end-to-end staple anastomosis was created using the TAYLOR and TA stapler. 3-0 GI silk suture was used as a crotch stitch. The abdomen was irrigated there is no bleeding seen. The small bowel was run. There is no evidence of any other inflammatory changes of the small bowel. At this point the fascia was closed with looped #1 PDS suture. Skin was closed interrupted 3-0 Monocryl suture.Prevena Was placed on top and then close skin. Patient top she will was sent to recovery in stable condition.
[2018-11-23] MEDS: ROPIVACAINE 400 MG, fentaNYL (PF) 625 MCG in SODIUM CHLORIDE 0.9% 158 ML EPIDURAL PRN ×2 (11:18→12:52)
[2018-11-23 14:26] VITALS: BMI 29.3
--- NOTE | 2018-11-23 14:46 | P.CONS ---
History of Present Illness - Reason for Consult Tachycardia, hypotension - History of Present Illness 28-year-old pleasant female was admitted for elective partial small bowel resection. Patient has multiple hospice physicians in the past for for small bowel obstruction. Patient appears to have stricture of the ileus. Partial small bowel resection clinically doing well bit hypotensive postoperatively which is expected patient is on IV fluids bit tachycardic postoperatively which is also expected continue with IV fluids for now. Patient pain is well-controlled. Except for some my shoulder pain post surgery Review of Systems REVIEW OF SYSTEMS: CONSTITUTIONAL: No fever, no malaise, no fatigue. HEENT: No recent visual problems or hearing problems. Denied any sore throat. CARDIOVASCULAR: No chest pain, orthopnea, PND, no palpitations, no syncope. PULMONARY: No shortness of breath, no cough, no hemoptysis. GASTROINTESTINAL: No diarrhea, no nausea, no vomiting, no abdominal pain. NEUROLOGICAL: No headaches, no weakness, no numbness. HEMATOLOGICAL: Denies any bleeding or petechiae. GENITOURINARY: Denies any burning micturition, frequency, or urgency. MUSCULOSKELETAL/RHEUMATOLOGICAL: Denies any joint pain, swelling, or any muscle pain. ENDOCRINE: Denies any polyuria or polydipsia. The rest of the 14-point review of systems is negative. Past Medical History Past Medical History: No Reported History Additional Past Medical History / Comment(s): NOVEMBER 10- ADMITTED FOR SBO, Headaches r/t menses. Bronchitis. Joint pain- CAUSE UNDETERMINED. History of Any Multi-Drug Resistant Organisms: None Reported Past Surgical History: No Surgical Hx Reported Additional Past Surgical History / Comment(s): wisdom teeth wisdom Past Anesthesia/Blood Transfusion Reactions: Motion Sickness, Postoperative Nausea & Vomiting (PONV) Additional Past Anesthesia/Blood Transfusion Reaction / Comm: never general anesthesia. Past Psychological History: No Psychological Hx Reported Additional Psychological History / Comment(s): Pt resides with her spouse. She is independent. Smoking Status: Never smoker Past Alcohol Use History: None Reported Past Drug Use History: None Reported - Past Family History Father Family Medical History: No Reported History Additional Family Medical History / Comment(s): Father is a smoker. Mother Family Medical History: Cancer Additional Family Medical History / Comment(s): Leukemia. May have some clotting issues. Mother is a smoker Medications and Allergies Home Medications Medication Instructions Recorded Confirmed Type ALPRAZolam [Xanax] 0.25 mg PO BID PRN 11/10/18 11/23/18 History Omeprazole 20 mg PO QAM 11/10/18 11/23/18 History buPROPion [Wellbutrin] 100 mg PO TID 11/10/18 11/23/18 History Allergies Allergy/AdvReac Type Severity Reaction Status Date / Time procaine HCl [From Novocain] AdvReac Nausea & Verified 11/23/18 14:05 Vomiting sulfamethoxazole AdvReac Hallucinati Verified 11/23/18 14:05 [From Bactrim] ons trimethoprim [From Bactrim] AdvReac Hallucinati Verified 11/23/18 14:05 ons Physical Exam Vitals: Vital Signs Temp Pulse Pulse Pulse Resp BP Pulse Ox 11/23/18 13:18 98.4 F 110 H 16 104/67 100 11/23/18 12:45 90 16 101/63 100 11/23/18 12:15 89 16 107/62 100 11/23/18 12:00 89 16 103/65 99 11/23/18 11:45 81 16 108/62 100 11/23/18 11:30 81 16 100/65 100 11/23/18 11:18 97.6 F 82 16 96/62 100 11/23/18 09:02 98.4 F 106 H 16 122/76 100 Intake and Output 11/22/18 11/23/18 11/23/18 22:59 06:59 14:59 Intake Total 1012 Output Total 210 Balance 802 Intake: IV 1012 Output: Urine 180 Estimated Blood Loss 30 Other: Voiding Method Indwelling Catheter PHYSICAL EXAMINATION: GENERAL: The patient is alert and oriented x3, not in any acute distress. Well developed, well nourished. HEENT: Pupils are round and equally reacting to light. EOMI. No scleral icterus. No conjunctival pallor. Normocephalic, atraumatic. No pharyngeal erythema. No thyromegaly. CARDIOVASCULAR: S1 and S2 present. No murmurs, rubs, or gallops. PULMONARY: Chest is clear to auscultation, no wheezing or crackles. ABDOMEN: Patient has an abdominal binder in place surgical site areas appears to be clean sluggish bowel sounds MUSCULOSKELETAL: No joint swelling or deformity. EXTREMITIES: No cyanosis, clubbing, or pedal edema. NEUROLOGICAL: Gross neurological examination did not reveal any focal deficits. SKIN: No rashes. Assessment and Plan Plan: -Sinus tachycardia: Expected postoperative sponsor lung with mild hypotension which is expected postoperatively continue with IV fluids. -Partial small bowel resection: Pain management due to prophylaxis per primary service
[2018-11-23] MEDS: D5-0.45% NACL WITH KCL 20MEQ/L 1,000 ML IV SCH (18:20)
[2018-11-23] MEDS: buPROPion 100 MG TAB PO SCH ×2 (18:20→21:28)
[2018-11-24] MEDS: D5-0.45% NACL WITH KCL 20MEQ/L 1,000 ML IV SCH ×3 (00:35→08:24)
[2018-11-24] MEDS: LACTATED RINGERS 1,000 ML IV SCH ×2 (06:15→11:20)
--- NOTE | 2018-11-24 07:12 | P.PN ---
Progress Note - Text 11/24 929am 28-year-old female status post bowel resection by Dr. Goldman . Patient has an epidural catheter and is running at 6 mL an hour with a VAS of 1, no motor or sensory deficit noted. Patient has been ambulating well plan to continue epidural infusion
[2018-11-24] MEDS: buPROPion 100 MG TAB PO SCH ×3 (08:24→21:05)
[2018-11-24] MEDS: ALVIMOPAN 12 MG CAPSULE PO SCH ×2 (08:24→21:05)
[2018-11-24] MEDS: PANTOPRAZOLE 40 MG TABLET PO SCH (08:24)
--- NOTE | 2018-11-24 11:12 | P.PN ---
Progress Note - Text Progress Note Date: 11/24/18 Postop day 1 Patient's postoperative day 1 from exploratory laparotomy and ileocolectomy for ileal stricture. Patient doing quite well. Her pain is minimal. On exam her vital signs are stable. Her abdomen soft. Patient will have her diet advanced to a full liquid diet.
--- NOTE | 2018-11-24 12:10 | P.PN ---
Subjective 28-year-old pleasant female was admitted for the partial small bowel resection, and underwent surgery patient still has an epidural in place did pass gas did not move her bowel yet pain is well controlled at this time. Patient was started on diet and diet is being advanced. Constitutional: Denied any fatigue denied any fever. Cardio vascular: denied any chest pain, palpitations Gastrointestinal denied any nausea vomiting Pulmonary: Denied any shortness of breath cough Neurologic denied any new focal deficits All inpatient medications were reviewed and appropriate changes in these medications as dictated in the interval history and assessment and plan. Objective - Vital Signs Vital signs: Vital Signs Temp 98.1 F 11/24/18 07:00 Pulse 101 H 11/24/18 07:00 Resp 16 11/24/18 09:27 BP 90/56 11/24/18 07:00 Pulse Ox 97 11/24/18 07:47 Intake & Output 11/23/18 11/24/18 11/24/18 18:59 06:59 18:59 Intake Total 1012 1240 43.3 Output Total 210 2050 1400 Balance 802 -810 -1356.7 Intake: IV 1012 Intake, IV Titration 1000 43.3 Amount D5-0.45% NaCl with KCl 1000 20Meq/l 1,000 ml @ 125 mls/hr IV .Q8H [facility] Rx#: [id number] Ropivacaine 400 mg 43.3 fentaNYL (PF) 625 mcg In Sodium Chloride 0.9% 158 ml @ Per Protocol EPIDURAL .Q0M PRN Rx#: [id number] Oral 240 Output: Urine 180 2050 1400 Estimated Blood Loss 30 Other: Voiding Method Indwelling Catheter Indwelling Catheter Indwelling Catheter - Exam Assessment and Plan Plan: -Sinus tachycardia: Expected postoperative finding along withwith mild hypotension which is expected postoperatively continue with IV fluids.patient's tachycardia and hypotension did improve with continue with IV fluids -patient is status post ileocolectomy for ileal stricture: Pain management due to prophylaxis per primary service. Continue with abdominal binder was started on diet advance as tolerated still has an epidural in place.
[2018-11-24] MEDS: ROPIVACAINE 400 MG, fentaNYL (PF) 625 MCG in SODIUM CHLORIDE 0.9% 158 ML EPIDURAL PRN (16:32)
[2018-11-24] MEDS: ALPRAZolam 0.25 MG TAB PO PRN ×2 (16:40→22:42)
[2018-11-24] MEDS: LORATADINE 10 MG TAB PO PRN (21:05)
[2018-11-24] MEDS: ONDANSETRON 4 MG/2 ML VIAL IVP PRN (22:29)
[2018-11-25] MEDS: LACTATED RINGERS 1,000 ML IV SCH ×2 (03:51→16:59)
--- NOTE | 2018-11-25 07:09 | P.PN ---
Progress Note - Text Progress Note Date: 11/25/18 Pt w/o complaints. Mild pain. Ambulating w/o LE weakness. Denies headache or fever. Epidural site clean and dry. A/P POD #2 s/p Bowel resection - continue epidural
[2018-11-25 07:10] LABS: Anion Gap 2 mmol/L; Blood Urea Nitrogen 4 mg/dL (7-17); Calcium 8.5 mg/dL (8.4-10.2); Carbon Dioxide 28 mmol/L (22-30); Chloride 109 mmol/L (98-107); Glucose 82 mg/dL (74-99); Potassium 4.4 mmol/L (3.5-5.1); Sodium 139 mmol/L (137-145)
[2018-11-25] MEDS: buPROPion 100 MG TAB PO SCH ×3 (09:01→20:22)
[2018-11-25] MEDS: PANTOPRAZOLE 40 MG TABLET PO SCH (09:01)
[2018-11-25] MEDS: ALVIMOPAN 12 MG CAPSULE PO SCH ×2 (09:01→20:22)
--- NOTE | 2018-11-25 11:32 | P.PN ---
Progress Note - Text Progress Note Date: 11/25/18 The patient states she feels weak. On exam her vital signs are stable. Her abdomen soft. Incision sites clean dry tach. Status post right collecting. Patient will have her diet advanced to full liquids.
--- NOTE | 2018-11-25 12:48 | P.PN ---
Subjective 28-year-old pleasant female was admitted for the partial small bowel resection, and underwent surgery patient still has an epidural in place did pass gas did not move her bowel yet pain is well controlled at this time. Patient was started on diet and diet is being advanced. 11/25/2018 no cigarette in overnight events pain is well-controlled still has an epidural in place did pass gas did not move her bowel yet Constitutional: Denied any fatigue denied any fever. Cardio vascular: denied any chest pain, palpitations Gastrointestinal denied any nausea vomiting Pulmonary: Denied any shortness of breath cough Neurologic denied any new focal deficits All inpatient medications were reviewed and appropriate changes in these medications as dictated in the interval history and assessment and plan. Objective - Vital Signs Vital signs: Vital Signs Temp 98.4 F 11/25/18 07:18 Pulse 88 11/25/18 07:18 Resp 16 11/25/18 07:18 BP 104/60 11/25/18 07:18 Pulse Ox 98 11/25/18 07:18 Intake & Output 11/24/18 11/25/18 11/25/18 18:59 06:59 18:59 Intake Total 1206.583 Output Total 2600 1500 Balance -1393.417 -1500 Intake: Intake, IV Titration 806.583 Amount D5-0.45% NaCl with KCl 500 20Meq/l 1,000 ml @ 125 mls/hr IV .Q8H [facility] Rx#: [id number] Lactated Ringers 1,000 ml 225 @ 75 mls/hr IV .[id number] [facility] Rx#:[id number] Ropivacaine 400 mg 81.583 fentaNYL (PF) 625 mcg In Sodium Chloride 0.9% 158 ml @ Per Protocol EPIDURAL .Q0M PRN Rx#: [id number] Oral 400 Output: Urine 2600 1500 Other: Voiding Method Indwelling Catheter Indwelling Catheter Indwelling Catheter - Exam Assessment and Plan Plan: -Sinus tachycardia: Expected postoperative finding along withwith mild hypotension which is expected postoperatively continue with IV fluids.patient's tachycardia and hypotension did improve with continue with IV fluids -patient is status post ileocolectomy for ileal stricture: Pain management due to prophylaxis per primary service. Continue with abdominal binder was started on diet advance as tolerated still has an epidural in place. - Labs CBC & Chem 7: 11/25/18 06:25 Labs: Abnormal Lab Results - Last 24 Hours (Table) 11/25/ Range/Units 06:25 Chloride 109 H (98-107) mmol/L BUN 4 L (7-17) mg/dL Assessment and Plan Plan: -Sinus tachycardia: Expected postoperative sponsor lung with mild hypotension which is expected postoperatively improved with IV fluids and these can be discontinued now -Partial small bowel resection: Pain management due to prophylaxis per primary service
[2018-11-25] MEDS: ROPIVACAINE 400 MG, fentaNYL (PF) 625 MCG in SODIUM CHLORIDE 0.9% 158 ML EPIDURAL PRN (16:56)
[2018-11-25] MEDS: ALPRAZolam 0.25 MG TAB PO PRN (18:46)
[2018-11-25] MEDS: LORATADINE 10 MG TAB PO PRN (21:27)
[2018-11-26] MEDS: LACTATED RINGERS 1,000 ML IV SCH ×2 (01:10→16:03)
[2018-11-26] MEDS: ONDANSETRON 4 MG/2 ML VIAL IVP PRN ×3 (01:11→20:49)
--- NOTE | 2018-11-26 07:58 | P.PN ---
Progress Note - Text Progress Note Date: 11/26/18 Pt w/o complaints. OOB to chair. Denies weakness or headache. Epidural @ 9 ml/hr. Epidural site clean and dry A/P POD#3 s/p SBR - continue at current setting
[2018-11-26] MEDS: buPROPion 100 MG TAB PO SCH ×3 (08:33→20:49)
[2018-11-26] MEDS: PANTOPRAZOLE 40 MG TABLET PO SCH (08:33)
[2018-11-26] MEDS: ALVIMOPAN 12 MG CAPSULE PO SCH ×2 (08:33→20:48)
[2018-11-26] MEDS ORDERED: HYDROmorphone 0.5 MG/0.5 ML SYRINGE IVP PRN (09:13)
--- NOTE | 2018-11-26 10:20 | P.PN ---
Progress Note - Text Progress Note Date: 11/26/18 The patient feels better. On exam her vital signs are stable. Her abdomen soft. Incision sites clean and intact. Patient will have her Muller and epidural removed today. We will tentatively discharge home tomorrow.
[2018-11-26] MEDS ORDERED: SODIUM CHLORIDE 0.9% 1,000 ML IV ONE (11:54)
[2018-11-26 12:55] LABS: Basophils % (A) 0 %; Eosinophils # (A) 0.2 k/uL (0-0.7); Eosinophils % (A) 2 %; HCT 33.8 % (34.0-46.0); HGB 11.1 gm/dL (11.4-16.0); Lymphocytes # (A) 0.8 k/uL (1.0-4.8); Lymphocytes % (A) 9 %; MCV 84.8 fL (80.0-100.0); Mean Platelet Volume 6.8; Monocytes # (A) 0.4 k/uL (0-1.0); Monocytes % (A) 5 %; Neutrophils # (A) 7.7 k/uL (1.3-7.7); Neutrophils % (A) 84 %; Platelet Count 347 k/uL (150-450); RBC 3.98 m/uL (3.80-5.40); RDW 13.9 % (11.5-15.5); WBC 9.2 k/uL (3.8-10.6)
[2018-11-26] MEDS: ALPRAZolam 0.25 MG TAB PO PRN ×2 (12:58→20:48)
[2018-11-26] MEDS ORDERED: HYDROmorphone 1 MG/ML 1 ML SYRINGE IVP PRN (14:37)
--- NOTE | 2018-11-26 16:45 | P.PN ---
Subjective 28-year-old pleasant female was admitted for the partial small bowel resection, and underwent surgery patient still has an epidural in place did pass gas did not move her bowel yet pain is well controlled at this time. Patient was started on diet and diet is being advanced. 11/25/2018 no cigarette in overnight events pain is well-controlled still has an epidural in place did pass gas did not move her bowel yet 11/26/2018 Patient is comparing of dizziness In the CBC hemoglobin is 11.1 no evidence of further bleed but patient and patient the started menstruating today. Patient is being continued on IV fluids will give her a liter bolus patient is bit tachycardic patient has bibasilar crackles we'll obtain a chest x-ray as well. Constitutional: Denied any fatigue denied any fever. Cardio vascular: denied any chest pain, palpitations Gastrointestinal denied any nausea vomiting Pulmonary: Denied any shortness of breath cough Neurologic denied any new focal deficits All inpatient medications were reviewed and appropriate changes in these medications as dictated in the interval history and assessment and plan. Objective - Vital Signs Vital signs: Vital Signs Temp 98.3 F 11/26/18 14:01 Pulse 101 H 11/26/18 14:01 Resp 12 11/26/18 14:01 BP 117/73 11/26/18 14:01 Pulse Ox 94 L 11/26/18 14:01 Intake & Output 11/25/18 11/26/18 11/26/18 18:59 06:59 18:59 Intake Total 819.6 2570 745.95 Output Total 320 1500 Balance 819.6 2250 -754.05 Intake: IV 600 600 Lactated Ringers 1,000 ml 600 600 @ 75 mls/hr IV .[id number] [facility] Rx#:[id number] Intake, IV Titration 219.6 900 145.95 Amount Lactated Ringers 1,000 ml 900 @ 75 mls/hr IV .[id number] [facility] Rx#:[id number] Ropivacaine 400 mg 219.6 145.95 fentaNYL (PF) 625 mcg In Sodium Chloride 0.9% 158 ml @ Per Protocol EPIDURAL .Q0M PRN Rx#: [id number] Oral 1670 Output: Urine 320 1500 Uretheral (Muller) 1500 Other: Voiding Method Indwelling Catheter Indwelling Catheter Indwelling Catheter # Voids 1 - Exam PHYSICAL EXAMINATION: GENERAL: The patient is alert and oriented x3, not in any acute distress. Well developed, well nourished. HEENT: Pupils are round and equally reacting to light. EOMI. No scleral icterus. No conjunctival pallor. Normocephalic, atraumatic. No pharyngeal erythema. No thyromegaly. CARDIOVASCULAR: S1 and S2 present. No murmurs, rubs, or gallops. PULMONARY: Air entry into bilateral lung marcos prefaced or crackles ABDOMEN: Binder in place abdomen is soft does have bowel sounds MUSCULOSKELETAL: No joint swelling or deformity. EXTREMITIES: No cyanosis, clubbing, or pedal edema. NEUROLOGICAL: Gross neurological examination did not reveal any focal deficits. SKIN: No rashes. - Labs CBC & Chem 7: 11/26/18 12:27 11/25/18 06:25 Labs: Abnormal Lab Results - Last 24 Hours (Table) 11/26/18 Range/Units 12:27 Hgb 11.1 L (11.4-16.0) gm/dL Hct 33.8 L (34.0-46.0) % Lymphocytes # 0.8 L (1.0-4.8) k/uL Assessment and Plan Plan: -Lightheadedness probably secondary to intravascular volume depletion, patient was started on IV fluids patient's hemoglobin is 11.1 -Bibasilar crackles most probably atelectasis we'll obtain a chest x-ray to rule out pneumonia -Partial small bowel resection: Pain management due to prophylaxis per primary service
[2018-11-26] MEDS: HYDROcodone/APAP 7.5-325MG 1 EACH TAB PO PRN (18:08)
--- NOTE | 2018-11-26 18:58 | XR ---
EXAMINATION TYPE: XR chest 2V DATE OF EXAM: 11/26/2018 COMPARISON: None INDICATION: Bowel surgery previous day TECHNIQUE: Frontal and lateral views of the chest are obtained. FINDINGS: The heart size is normal. The pulmonary vasculature is normal. Small posterior infiltrate may be present on the lateral projection. This may be at the left base. Co rrelate for atelectasis. Early pneumonia could be considered. Follow-up can be performed.. IMPRESSION: 1. Small posterior infiltrate may be present. Continued follow-up is recommended.
[2018-11-26] MEDS: HYDROmorphone 0.5 MG/0.5 ML SYRINGE IVP PRN ×2 (20:47→22:59)
[2018-11-26] MEDS: LORATADINE 10 MG TAB PO PRN (20:48)
[2018-11-27] MEDS: LACTATED RINGERS 1,000 ML IV SCH (05:32)
[2018-11-27] MEDS: HYDROcodone/APAP 7.5-325MG 1 EACH TAB PO PRN ×2 (05:32→12:58)
[2018-11-27 08:08] VITALS: BP 121/86; PULSE 107; RESP 16; TEMP 98.5
[2018-11-27] MEDS: ALVIMOPAN 12 MG CAPSULE PO SCH (09:01)
[2018-11-27] MEDS: buPROPion 100 MG TAB PO SCH (09:01)
[2018-11-27] MEDS: PANTOPRAZOLE 40 MG TABLET PO SCH (09:01)
--- NOTE | 2018-11-27 10:57 | P.DS ---
Providers Date of admission: 11/23/18 08:22 Expected date of discharge: 11/27/18 Attending physician: Den Goldman Consults: 11/23/18 11:00 Consult Physician Routine Consulting Provider: John Marshall Consult Reason/Comments: Medical management Do you want consulting provider notified?: Yes Primary care physician: [facility] Course: This a 28-year-old female who underwent right colectomy for small bowel obstruction. Patient's found have a stricture of the terminal ileum. Please see chart for details Procedures: Right colectomy Patient Condition at Discharge: Good Plan - Discharge Summary Discharge Rx Participant: Yes New Discharge Prescriptions: New Docusate [Colace] 100 mg PO BID #20 capsule HYDROcodone/APAP 7.5-325MG [[place] 7.5-325] 1 tab PO Q6HR PRN 3 Days #10 tab PRN Reason: Pain No Action buPROPion [Wellbutrin] 100 mg PO TID Omeprazole 20 mg PO QAM ALPRAZolam [Xanax] 0.25 mg PO BID PRN PRN Reason: Anxiety Discharge Medication List ALPRAZolam [Xanax] 0.25 mg PO BID PRN 11/10/18 [History] Omeprazole 20 mg PO QAM 11/10/18 [History] buPROPion [Wellbutrin] 100 mg PO TID 11/10/18 [History] Docusate [Colace] 100 mg PO BID #20 capsule 11/27/18 [Rx] HYDROcodone/APAP 7.5-325MG [[place] 7.5-325] 1 tab PO Q6HR PRN 3 Days #10 tab 11/27/18 [Rx] Follow up Appointment(s)/Referral(s): Den Goldman MD [STAFF PHYSICIAN] - 1 Week
--- NOTE | 2018-11-27 13:36 | P.PN ---
Subjective 28-year-old pleasant female was admitted for the partial small bowel resection, and underwent surgery patient still has an epidural in place did pass gas did not move her bowel yet pain is well controlled at this time. Patient was started on diet and diet is being advanced. 11/25/2018 no cigarette in overnight events pain is well-controlled still has an epidural in place did pass gas did not move her bowel yet 11/26/2018 Patient is comparing of dizziness In the CBC hemoglobin is 11.1 no evidence of further bleed but patient and patient the started menstruating today. Patient is being continued on IV fluids will give her a liter bolus patient is bit tachycardic patient has bibasilar crackles we'll obtain a chest x-ray as well. 11/27/2018 Patient is clinically doing well is being discharged today patient had a chest x-ray which showed some atelectasis the right lower lobes. Patient will be provided with incentive spirometry patient has fever and increased cough asked her to call PCPs office atelectasis can lead to pneumonia. Constitutional: Denied any fatigue denied any fever. Cardio vascular: denied any chest pain, palpitations Gastrointestinal denied any nausea vomiting Pulmonary: Denied any shortness of breath cough Neurologic denied any new focal deficits All inpatient medications were reviewed and appropriate changes in these medications as dictated in the interval history and assessment and plan. Objective - Vital Signs Vital signs: Vital Signs Temp 98.5 F 11/27/18 08:07 Pulse 107 H 11/27/18 08:07 Resp 16 11/27/18 08:07 BP 121/86 11/27/18 08:07 Pulse Ox 95 11/27/18 08:07 Intake & Output 11/26/18 11/27/18 11/27/18 18:59 06:59 18:59 Intake Total 745.95 690 180 Output Total 1500 Balance -754.05 690 180 Intake: IV 600 Lactated Ringers 1,000 ml 600 @ 75 mls/hr IV .[id number] [facility] Rx#:[id number] Intake, IV Titration 145.95 150 Amount Lactated Ringers 1,000 ml 150 @ 75 mls/hr IV .[id number] [facility] Rx#:[id number] Ropivacaine 400 mg 145.95 fentaNYL (PF) 625 mcg In Sodium Chloride 0.9% 158 ml @ Per Protocol EPIDURAL .Q0M PRN Rx#: [id number] Oral 540 180 Output: Urine 1500 Uretheral (Muller) 1500 Other: Voiding Method Indwelling Catheter Toilet # Voids 1 # Bowel Movements 1 - Exam PHYSICAL EXAMINATION: GENERAL: The patient is alert and oriented x3, not in any acute distress. Well developed, well nourished. HEENT: Pupils are round and equally reacting to light. EOMI. No scleral icterus. No conjunctival pallor. Normocephalic, atraumatic. No pharyngeal erythema. No thyromegaly. CARDIOVASCULAR: S1 and S2 present. No murmurs, rubs, or gallops. PULMONARY: Air entry into bilateral lung marcos prefaced or crackles ABDOMEN: Binder in place abdomen is soft does have bowel sounds MUSCULOSKELETAL: No joint swelling or deformity. EXTREMITIES: No cyanosis, clubbing, or pedal edema. NEUROLOGICAL: Gross neurological examination did not reveal any focal deficits. SKIN: No rashes. - Labs CBC & Chem 7: 11/26/18 12:27 11/25/18 06:25 Assessment and Plan Plan: -Lightheadedness probably secondary to intravascular volume depletion, patient was started on IV fluids patient's hemoglobin is 11.1, improved now clinically doing well now -Bibasilar crackles most probably atelectasis , management as mentioned above -Partial small bowel resection: Pain management due to prophylaxis per primary service
--- NOTE | 2018-11-29 06:04 | CDI ---
Documentation Clarification Form Date: 11/29/18 From: Ulises Lopez Phone: call to [phone] Admit Date: 11/23/2018 8:22:00 AM Patient Name: Tasha Hua Visit Number: [id number] Discharge Date: 11/27/2018 1:06:00 PM ATTENTION: The Clinical Documentation Specialists (CDI) and [facility] Coding Staff appreciate your assistance in clarifying documentation. Please respond to the clarification below the line at the bottom and electronically sign. The CDI & [facility] Coding staff will review the response and follow-up if needed. Please note: Queries are made part of the Legal Health Record. If you have any questions, please contact the author of this message via ITS. Dr. Den Goldman The final diagnosis of the pathology report states: "SMALL BOWEL RIGHT COLON, ILEOCOLECTOMY: Chronic active enteritis with mucosal ulceration consistent with Crohn's enteritis," Documentation states: Stricture at ileum Treatment:Right Hemicolectomy In your professional opinion, do you agree with the pathology report specifying SBO(Stricture at ileum) as Crohn's enteritis? Yes No Other (please specify) Unable to determine MTDD
--- NOTE | 2018-11-29 06:14 | CDI ---
Documentation Clarification Form Date: 11/29/18 From: Ulises Lopez Phone: call to [phone] Admit Date: 11/23/2018 8:22:00 AM Patient Name: Tasha Hua Visit Number: [id number] Discharge Date: 11/27/2018 1:06:00 PM ATTENTION: The Clinical Documentation Specialists (CDI) and [facility] Coding Staff appreciate your assistance in clarifying documentation. Please respond to the clarification below the line at the bottom and electronically sign. The CDI & [facility] Coding staff will review the response and follow-up if needed. Please note: Queries are made part of the Legal Health Record. If you have any questions, please contact the author of this message via ITS. Dr. Cecilio Scott The patient presented with the following SBO and underwent hemicolectomy.In 11/27 Progress note stated "Bibasilar crackles most probably atelectasis". given Incentive Spirometry. History/Risk Factors: SBO Radiology findings: chest X-ray Correlate for atelectasis. Other Clinical Indicators: Treatment: Incentive Spirometry. In your professional opinion, can you please clarify Atelectasis presence? Other, please specify Unable to determine Already did the appropriate dictation MTDD
== END 2018-11-27 13:06 | disposition home or self-care (01) | DRG 331 ==
LOC: 2ORMAIN 08:22 → 4SSUR 12:27
PROVIDERS: ADMIT Surgery; ATTEND Surgery
PROC: 0DTF0ZZ Resection of Right Large Intestine, Open Approach (ICD-10-PCS; principal; 2018-11-23 10:15)
DX: K56.699 Other intestinal obstruction unspecified as to partial versus complete obstruction (principal); R42 Dizziness and giddiness; E86.9 Volume depletion, unspecified; Z80.6 Family history of leukemia; Z88.8 Allergy status to other drugs, medicaments and biological substances; Z88.2 Allergy status to sulfonamides; I95.9 Hypotension, unspecified
CPT/HCPCS: 71046; 80048; 81025; 85025; 86850; 86900; 86901; 88307; 94760

== ENCOUNTER → 2020-02-21 | Outpatient (CLI) | payer MEDICAID ==
[2020-02-21 10:49] LABS: Basophils # (A) 0.1 k/uL (0-0.2); Basophils % (A) 2 %; Eosinophils # (A) 0.2 k/uL (0-0.7); Eosinophils % (A) 3 %; HCT 43.8 % (34.0-46.0); HGB 14.4 gm/dL (11.4-16.0); Lymphocytes # (A) 2.2 k/uL (1.0-4.8); Lymphocytes % (A) 34 %; MCH 30.5 pg (25.0-35.0); MCHC 32.9 g/dL (31.0-37.0); MCV 92.5 fL (80.0-100.0); Monocytes # (A) 0.5 k/uL (0-1.0); Monocytes % (A) 7 %; Neutrophils # (A) 3.4 k/uL (1.3-7.7); Neutrophils % (A) 52 %; Platelet Count 354 k/uL (150-450); RBC 4.73 m/uL (3.80-5.40); RDW 12.6 % (11.5-15.5); WBC 6.5 k/uL (3.8-10.6)
[2020-02-21 16:32] LABS: African American GFR (CKD) 114.7 (60.0-200.0); Albumin 4.5 g/dL (3.80-4.90); Albumin/Globulin Ratio 1.5 (1.60-3.17); Anion Gap 9.2 mmol/L (4.00-12.00); BUN/Creat Ratio 16.25 Ratio (12.00-20.00); Calcium 9.7 mg/dL (8.7-10.3); Carbon Dioxide 23.8 mmol/L (21.6-31.8); Chol/HDL Ratio 2.29; LDL Cholesterol,Calculated 75.2 mg/dL (0.0-131.0); Non-African American GFR(CKD) 98.9 (60.0-200.0); Potassium 4.8 mmol/L (3.5-5.5); Total Bilirubin 0.7 mg/dL (0.2-1.2); Total Protein 7.5 g/dL (6.2-8.2); VLDL Calculation 12.8 mg/dL (5.00-40.00)
== END | disposition home or self-care (01) ==
LOC: LABWHC1 09:07
PROVIDERS: ATTEND Family Medicine
DX: Z13.220 Encounter for screening for lipoid disorders (principal); Z13.29 Encounter for screening for other suspected endocrine disorder; Z01.419 Encounter for gynecological examination (general) (routine) without abnormal findings; N92.6 Irregular menstruation, unspecified
CPT/HCPCS: 36415; 80053; 80061; 84443; 85025

== ENCOUNTER → 2020-12-11 | Outpatient (CLI) | payer MEDICAID ==
[2020-12-11 19:22] LABS: HCT 36.9 % (37.2-46.3); HGB 12.8 g/dL (12.0-15.0); MCH 31.5 pg (27.0-32.0); MCHC 34.7 g/dL (32.0-37.0); MCV 90.9 fL (80.0-97.0); Mean Platelet Volume 10.1 fL (9.5-12.2); Platelet Count 324 X 10*3/uL (140-440); RBC 4.06 X 10*6/uL (4.10-5.20); RDW 11.9 % (11.5-14.5); WBC 11.16 X 10*3/uL (4.50-10.00)
[2020-12-11 21:39] LABS: HIV 2 AB Non-Reactive (Non-Reactive); HIV AB P24 Non-Reactive (Non-Reactive); HIV P24 AG Non-Reactive (Non-Reactive)
[2020-12-11 22:00] LABS: Hemoglobin A1C 4.7 % (4.0-6.0)
[2020-12-12 02:43] LABS: Hepatitis B Surface Antigen Non-Reactive (Non-Reactive)
== END | disposition home or self-care (01) ==
LOC: LABWHC1 10:33
PROVIDERS: ATTEND Obstetrics & Gynecology Obstetrics
DX: Z34.01 Encounter for supervision of normal first pregnancy, first trimester (principal); Z3A.00 Weeks of gestation of pregnancy not specified
CPT/HCPCS: 36415; 82950; 83036; 85027; 86762; 86780; 86850; 86900; 86901; 87340; 87390

== ENCOUNTER → 2021-04-08 | Outpatient (CLI) | payer MEDICAID ==
[2021-04-08 18:55] LABS: HCT 36.1 % (37.2-46.3); HGB 12.3 g/dL (12.0-15.0); MCH 31.5 pg (27.0-32.0); MCHC 34.1 g/dL (32.0-37.0); MCV 92.3 fL (80.0-97.0); Platelet Count 284 X 10*3/uL (140-440); RBC 3.91 X 10*6/uL (4.10-5.20); RDW 12.8 % (11.5-14.5); WBC 10.97 X 10*3/uL (4.50-10.00)
== END | disposition home or self-care (01) ==
LOC: LABWHC1 13:52
PROVIDERS: ATTEND Obstetrics & Gynecology Obstetrics
DX: Z36.9 Encounter for antenatal screening, unspecified (principal)
CPT/HCPCS: 36415; 82950; 85027; 86850

== ENCOUNTER 2021-06-29 21:00 | Inpatient (IN) | payer MEDICAID ==
[2021-06-29] MEDS ORDERED: TERBUTALINE 1 MG/ML VIAL SQ PRN (22:05)
[2021-06-29] MEDS ORDERED: CARBOPROST TROMETHAMINE 250 MCG/ML 1 ML AMP IM PRN (22:05)
[2021-06-29] MEDS ORDERED: OXYTOCIN 10 UNIT/ML 1 ML VIAL IM PRN (22:05)
[2021-06-29] MEDS ORDERED: METHYLERGONOVINE 0.2 MG/ML 1 ML AMP IM PRN (22:05)
[2021-06-29] MEDS ORDERED: LIDOCAINE 0.5% (PF) 5 MG/ML (50 ML SDV) SQ PRN (22:05)
[2021-06-29 23:04] LABS: Basophils % (A) 0 %; Eosinophils # (A) 0.1 k/uL (0-0.7); Eosinophils % (A) 1 %; HCT 35.6 % (34.0-46.0); HGB 12.1 gm/dL (11.4-16.0); Lymphocytes # (A) 1.7 k/uL (1.0-4.8); Lymphocytes % (A) 17 %; MCH 30.8 pg (25.0-35.0); MCHC 33.9 g/dL (31.0-37.0); MCV 90.7 fL (80.0-100.0); Mean Platelet Volume 8.6; Monocytes # (A) 0.6 k/uL (0-1.0); Monocytes % (A) 7 %; Neutrophils # (A) 7.3 k/uL (1.3-7.7); Neutrophils % (A) 73 %; Platelet Count 307 k/uL (150-450); RBC 3.93 m/uL (3.80-5.40); RDW 13.4 % (11.5-15.5); WBC 9.9 k/uL (3.8-10.6)
[2021-06-30] MEDS: LACTATED RINGERS 1,000 ML IV SCH ×2 (05:59→11:20)
[2021-06-30] MEDS ORDERED: OXYTOCIN 30 UNITS/500 ML NS 30 UNIT in SALINE 1 500ML.BAG IV SCH ×2 (06:00→16:00)
[2021-06-30] MEDS ORDERED: AMPICILLIN 2,000 MG in SODIUM CHLORIDE 0.9% 100 ML IVPB STA (08:38)
[2021-06-30] MEDS ORDERED: BUTORPHANOL 1 MG/ML 1 ML VIAL IV PRN (09:35)
[2021-06-30] MEDS ORDERED: fentaNYL (PF) 50 MCG/ML 5 ML AMP ONE (11:12)
[2021-06-30] MEDS ORDERED: BUPIVACAINE (PF) 0.25% 30 ML VIAL ONE (11:12)
[2021-06-30] MEDS ORDERED: SODIUM CHLORIDE 0.9% 100 ML BAG ONE (11:12)
[2021-06-30] MEDS ORDERED: AMPICILLIN 1,000 MG in SODIUM CHLORIDE 0.9% 50 ML IVPB SCH (12:45)
[2021-06-30] MEDS ORDERED: LANOLIN CREAM 5 GM TUBE TOPICAL PRN (15:48)
[2021-06-30] MEDS ORDERED: ZOLPIDEM 5 MG TAB PO PRN (15:48)
[2021-06-30] MEDS ORDERED: BENZOCAINE/MENTHOL SPRAY 1 GM/SPRAY AEROSOL TOPICAL PRN (15:48)
[2021-06-30] MEDS ORDERED: HYDROCORTISONE 2.5% RECTAL CREAM 30 GM TUBE RECTAL PRN (15:48)
[2021-06-30] MEDS ORDERED: ACETAMINOPHEN TAB 325 MG TAB PO PRN (15:48)
[2021-06-30] MEDS ORDERED: diphenhydrAMINE 25 MG CAP PO PRN (15:48)
[2021-06-30] MEDS ORDERED: diphenhydrAMINE 50 MG/ML 1 ML VIAL IVP PRN ×2 (15:48)
[2021-06-30] MEDS ORDERED: SIMETHICONE 80 MG CHEWABLE PO PRN (15:48)
[2021-06-30] MEDS ORDERED: diphenhydrAMINE 50 MG CAP PO PRN (15:48)
--- NOTE | 2021-06-30 15:50 | P.HPOB ---
History of Present Illness H&P Date: 06/30/21 Chief Complaint: IUP @ 39 6/7 weeks, PROM This is a 30-year-old 1 para 0 at 39-6/7 weeks that presented to labor and delivery last evening with complaints of rupture of membranes. Patient states she noted leakage of fluid around 3 PM which increased around 5 AM. Juan [place] then decided to come into the hospital. Patient had a positive amnio sure well in the hospital. Patient also notes increased urinary frequency yesterday, increased dysuria since being admitted to the hospital. Patient notes contractions throughout the night. Patient denies vaginal bleeding and notes good movement. Patient had been receiving routine care with myself that had been uncomplicated. Review of Systems Constitutional: Denies chills, Denies fatigue, Denies fever Ears, nose, mouth and throat: Denies headache Cardiovascular: Reports leg edema Respiratory: Denies dyspnea Gastrointestinal: Denies nausea, Denies vomiting Genitourinary: Reports Past Medical History Past Medical History: No Reported History Additional Past Medical History / Comment(s): NOVEMBER 10- ADMITTED FOR SBO, Headaches r/t menses. Bronchitis. Joint pain- CAUSE UNDETERMINED. History of Any Multi-Drug Resistant Organisms: None Reported Date of last positivie culture/infection: 01/14/20 MDRO Source:: MRSAGROIN Past Surgical History: Bowel Resection Additional Past Surgical History / Comment(s): wisdom teeth Past Anesthesia/Blood Transfusion Reactions: Postoperative Nausea & Vomiting (PONV) Additional Past Anesthesia/Blood Transfusion Reaction / Comment(s): never general anesthesia. Past Psychological History: Anxiety Additional Psychological History / Comment(s): Pt resides with her spouse. She is independent. Smoking Status: Never smoker Past Alcohol Use History: None Reported Past Drug Use History: None Reported - Past Family History Father Family Medical History: No Reported History Additional Family Medical History / Comment(s): Father is a smoker. Mother Family Medical History: No Reported History Additional Family Medical History / Comment(s): Leukemia. May have some clotting issues. Mother is a smoker Medications and Allergies Home Medications Medication Instructions Recorded Confirmed Type buPROPion [Wellbutrin] 100 mg PO TID 11/10/18 06/29/21 History Famotidine [Pepcid] 10 mg PO DAILY 06/29/21 06/29/21 History Pnv No.95/Ferrous Fum/Folic AC 1 each PO DAILY 06/29/21 06/29/21 History [ Multivitamin Tablet] Allergies Allergy/AdvReac Type Severity Reaction Status Date / Time procaine HCl [From Novocain] AdvReac Nausea & Verified 06/29/21 21:21 Vomiting sulfamethoxazole AdvReac Unknown Verified 06/29/21 21:21 [From Bactrim] trimethoprim [From Bactrim] AdvReac Unknown Verified 06/29/21 21:21 Exam Osteopathic Statement: *. No significant issues noted on an osteopathic structural exam other than those noted in the History and Physical/Consult. 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 heart tones are noted to be category 1 and she is irvin irregularly. Results Result Diagrams: 06/29/21 22:36 Assessment and Plan (1) Term Current Visit: Yes Status: Acute Code(s): Z34.90 - ENCNTR FOR SUPRVSN OF NORMAL , UNSP, UNSP TRIMESTER SNOMED Code(s): 21599213 (2) PROM (premature rupture of membranes) Current Visit: Yes Status: Acute Code(s): O42.90 - ROSA ROM, 7TH0 BETW RUPT & ONST LABR, UNSP WEEKS OF GEST SNOMED Code(s): 30265112 Plan: 30-year-old 1 para 0 at 39-6/7 weeks with premature rupture of membranes. Pitocin augmentation of labor was begun this morning. Antibiotics are begun given length of time since she first noted leakage of fluid. Patient states understanding for antibiotics. Options for analgesia during labor discussed with patient including Stadol, epidural. Patient states understanding and will consider.
--- NOTE | 2021-06-30 15:52 | P.PROBDLV ---
Vaginal Delivery Note - . Vaginal Delivery Note: this is a 30-year-old 1 para 0 at 39-6/7 weeks that presented to labor and delivery last evening with complaints of premature rupture of membranes. Patient states her fluid started leaking around 1500, she noted an additional gush around 1700 when she decided to come in. Patient had a positive amnio sure. Patient was admitted and observed. Contractions were noted to be irregular therefore Pitocin augmentation of labor was begun. On examination this morning patient was noted to be 3/70/-2 station and amniotic sac was appreciated and ruptured, clear fluid was noted. Patient quickly became uncomfortable and requested epidural placement. Epidural was placed without difficulty by the anesthesia department. Patient progressed to complete began pushing and had a normal spontaneous vaginal delivery of a viable female infant in an occiput anterior presentation. After two-minute delayed the umbilical cord was doubly clamped and cut and the infant was handed to the maternal abdomen. Cord blood was then taken. The placenta was then delivered spont aneously intact with three-vessel cord being noted. On inspection the patient's vaginal vault a second-degree midline laceration was appreciated. This was repaired in the usual fashion after installation of lidocaine. Hemostasis was appreciated after repair was complete. The uterus was noted to be firm and below the umbilicus after delivery. Estimated blood loss 250 mL. Rectal exam was performed and found to be normal in nature. All counts were noted be correct 2. Patient and tolerated delivery well and are resting comfortably.
[2021-06-30] MEDS: IBUPROFEN 600 MG TAB PO SCH ×2 (17:11→22:33)
[2021-06-30] MEDS: buPROPion 100 MG TAB PO SCH ×2 (17:12→22:19)
[2021-06-30] MEDS: SENNOSIDES-DOCUSATE SODIUM 1 EACH TAB PO SCH (20:03)
[2021-07-01] MEDS: IBUPROFEN 600 MG TAB PO SCH ×3 (03:44→16:54)
[2021-07-01 04:09] VITALS: RESP 18
[2021-07-01] MEDS: LACTATED RINGERS 1,000 ML IV SCH ×3 (06:06→18:33)
[2021-07-01 07:38] LABS: Basophils # (A) 0.1 k/uL (0-0.2); Basophils % (A) 0 %; Eosinophils # (A) 0.1 k/uL (0-0.7); Eosinophils % (A) 1 %; HCT 33.3 % (34.0-46.0); Lymphocytes # (A) 2.1 k/uL (1.0-4.8); Lymphocytes % (A) 15 %; MCH 30.4 pg (25.0-35.0); MCHC 32.9 g/dL (31.0-37.0); MCV 92.4 fL (80.0-100.0); Mean Platelet Volume 8.9; Monocytes # (A) 0.8 k/uL (0-1.0); Monocytes % (A) 6 %; Neutrophils # (A) 10.9 k/uL (1.3-7.7); Neutrophils % (A) 77 %; Platelet Count 267 k/uL (150-450); RBC 3.61 m/uL (3.80-5.40); RDW 12.8 % (11.5-15.5); WBC 14.1 k/uL (3.8-10.6)
[2021-07-01] MEDS: SENNOSIDES-DOCUSATE SODIUM 1 EACH TAB PO SCH ×2 (08:26→10:14)
[2021-07-01] MEDS: buPROPion 100 MG TAB PO SCH ×2 (08:37→17:26)
[2021-07-01] MEDS ORDERED: PRENATAL VIT-IRON-FOLIC ACID 1 EACH CAP PO SCH (09:00)
--- NOTE | 2021-07-01 12:08 | P.DS ---
Providers Date of admission: 06/29/21 21:37 Expected date of discharge: 07/01/21 Attending physician: Yumiko Medina Primary care physician: Stated None - Discharge Diagnosis(es) (1) Term Current Visit: Yes Status: Acute (2) PROM (premature rupture of membranes) Current Visit: Yes Status: Acute (3) Status post normal vaginal delivery Current Visit: Yes Status: Acute (4) Second degree perineal laceration during delivery Current Visit: Yes Status: Acute Hospital Course: this is a 30-year-old 1 now para 1 that presented to labor and delivery at 39-6/7 weeks. patient is a known patient to me and has had an uncomplicated course. Patient presented with complaints of rupture of membranes. Patient states she noted spontaneous rupture of membranes around 3 PM, 06/29. Patient presented to the hospital around 7 PM, immature was positive at the time. Patient was admitted to labor and delivery for expectant management given her negative group beta strep culture. Patient contracted minimally through the evening eventually Pitocin augmentation of labor was begun physical ther. Upon examination in the a.m. she was noted to be 3 cm dilated, 70% effaced at a -2 station, amniotic sac was palpated and amniotomy was performed. Clear fluid was appreciated. Antibiotics were begun given the prolonged rupture of membranes. Patient quickly became uncomfortable and did request epidural placement. Epidural was placed without difficulty by the anesthesia department. Patient progressed to complete began pushing and had a normal spontaneous vaginal delivery of a viable female at 1517, weight of 6 lbs. 11 oz., Apgars of 9 and 9 at one and 5 minutes respectively. Patient did sustain a second-degree midline vaginal laceration during delivery. This was repaired in the usual fashion. Patient's course has been uneventful. On this day #1 she is ambulating and voiding without difficulty. She is tolerating a regular diet without nausea or vomiting. She states her pain is well- controlled. She is breast-feeding without difficulty. She would like discharge home at 24 hours. Plan - Discharge Summary New Discharge Prescriptions: No Action buPROPion [Wellbutrin] 100 mg PO TID Pnv No.95/Ferrous Fum/Folic AC [ Multivitamin Tablet] 1 each PO DAILY Famotidine [Pepcid] 10 mg PO DAILY Discharge Medication List buPROPion [Wellbutrin] 100 mg PO TID 05/10/19 [History] Famotidine [Pepcid] 10 mg PO DAILY 06/29/21 [History] Pnv No.95/Ferrous Fum/Folic AC [ Multivitamin Tablet] 1 each PO DAILY 06/29/21 [History] Follow up Appointment(s)/Referral(s): Yumiko Medina DO [Doctor of Osteopathic Medicine] - 4 Weeks Patient Instructions/Handouts: Vaginal Delivery (DC), Vaginal Delivery (GEN) Discharge Disposition: HOME SELF-CARE
[2021-07-01 17:37] VITALS: BP 125/88; PULSE 76; TEMP 98.1
== END 2021-07-01 19:37 | disposition home or self-care (01) | DRG 807 ==
LOC: FBPOP 21:00 → 4FBP 21:37
PROVIDERS: ADMIT Obstetrics & Gynecology; ATTEND Obstetrics & Gynecology Obstetrics
PROC: 10E0XZZ Delivery of Products of Conception, External Approach (ICD-10-PCS; principal; 2021-06-30)
PROC: 0KQM0ZZ Repair Perineum Muscle, Open Approach (ICD-10-PCS; 2021-06-30)
PROC: 4A0HXCZ Measurement of Products of Conception, Cardiac Rate, External Approach (ICD-10-PCS; 2021-06-30)
DX: O42.92 Full-term premature rupture of membranes, unspecified as to length of time between rupture and onset of labor (principal); Z37.0 Single live birth; O70.1 Second degree perineal laceration during delivery; O99.344 Other mental disorders complicating childbirth; F41.9 Anxiety disorder, unspecified; O99.52 Diseases of the respiratory system complicating childbirth; J40 Bronchitis, not specified as acute or chronic; O99.892 Other specified diseases and conditions complicating childbirth; R35.0 Frequency of micturition; Z3A.39 39 weeks gestation of pregnancy; Z88.8 Allergy status to other drugs, medicaments and biological substances; Z87.19 Personal history of other diseases of the digestive system
CPT/HCPCS: 59025; 84112; 85025; 86850; 86900; 86901; 99213

== ENCOUNTER 2024-09-19 06:00 | Inpatient (IN) | payer BC ==
[2024-09-19] MEDS: LACTATED RINGERS 1,000 ML IV SCH (06:15)
[2024-09-19] MEDS ORDERED: LIDOCAINE 0.5% (PF) 5 MG/ML (50 ML SDV) SQ PRN (06:16)
[2024-09-19] MEDS ORDERED: miSOPROStoL 200 MCG TAB RECTAL PRN (06:16)
[2024-09-19] MEDS ORDERED: CARBOPROST TROMETHAMINE 250 MCG/ML 1 ML AMP IM PRN (06:16)
[2024-09-19] MEDS ORDERED: miSOPROStoL 200 MCG TAB PO PRN (06:16)
[2024-09-19] MEDS ORDERED: METHYLERGONOVINE 0.2 MG/ML 1 ML AMP IM PRN (06:16)
[2024-09-19] MEDS ORDERED: TRANEXAMIC 1,000 MG/100ML-NACL 1,000 MG in EMPTY BAG 1 BAG IV PRN (06:16)
[2024-09-19] MEDS ORDERED: OXYTOCIN 10 UNIT/ML 1 ML VIAL IM PRN (06:16)
[2024-09-19] MEDS ORDERED: TERBUTALINE 1 MG/ML VIAL SQ PRN (06:16)
[2024-09-19 06:34] LABS: Basophils # (A) 0.1 k/uL (0-0.2); Basophils % (A) 0 %; Eosinophils # (A) 0.1 k/uL (0-0.7); Eosinophils % (A) 1 %; HCT 35.8 % (34.0-46.0); HGB 11.8 gm/dL (11.4-16.0); Lymphocytes # (A) 1.9 k/uL (1.0-4.8); Lymphocytes % (A) 16 %; MCH 28.7 pg (25.0-35.0); MCHC 32.9 g/dL (31.0-37.0); MCV 87.1 fL (80.0-100.0); Mean Platelet Volume 7.5; Monocytes # (A) 0.6 k/uL (0-1.0); Monocytes % (A) 5 %; Neutrophils # (A) 8.7 k/uL (1.3-7.7); Neutrophils % (A) 75 %; Platelet Count 364 k/uL (150-450); RBC 4.11 m/uL (3.80-5.40); RDW 13.9 % (11.5-15.5); WBC 11.6 k/uL (3.8-10.6)
[2024-09-19] MEDS: OXYTOCIN 30 UNITS/500 ML NS 30 UNIT in SALINE 1 500ML.BAG IV SCH (06:35)
--- NOTE | 2024-09-19 12:33 | P.HPOB ---
History of Present Illness H&P Date: 09/19/24 Chief Complaint: Term This is a 33-year-old at 39+ weeks that presents to labor and delivery for induction of labor. Patient has been receiving routine care which has been essentially uncomplicated. On blood work this patient has a blood type of Review of Systems Constitutional: Denies chills, Denies fatigue, Denies fever Ears, nose, mouth and throat: Denies headache Cardiovascular: Reports leg edema Respiratory: Denies dyspnea Gastrointestinal: Denies nausea, Denies vomiting Genitourinary: Reports Past Medical History Past Medical History: No Reported History Additional Past Medical History / Comment(s): NOVEMBER 10- ADMITTED FOR SBO, Headaches r/t menses. Bronchitis. Joint pain- CAUSE UNDETERMINED. History of Any Multi-Drug Resistant Organisms: MRSA Date of last positivie culture/infection: 01/31/2019 MDRO Source:: Groin Past Surgical History: Bowel Resection Additional Past Surgical History / Comment(s): wisdom teeth Past Anesthesia/Blood Transfusion Reactions: Postoperative Nausea & Vomiting (PONV) Additional Past Anesthesia/Blood Transfusion Reaction / Comment(s): never general anesthesia. Past Psychological History: Anxiety Additional Psychological History / Comment(s): Pt resides with her spouse. She is independent. Smoking Status: Never smoker Past Alcohol Use History: None Reported Past Drug Use History: None Reported - Past Family History Father Family Medical History: No Reported History Additional Family Medical History / Comment(s): Father is a smoker. Mother Family Medical History: No Reported History Additional Family Medical History / Comment(s): Leukemia. May have some clotting issues. Mother is a smoker Medications and Allergies Home Medications Medication Instructions Recorded Confirmed Type buPROPion [Wellbutrin] 100 mg PO TID 11/10/18 06/29/21 History Famotidine [Pepcid] 10 mg PO DAILY 06/29/21 06/29/21 History Vit No.179/Iron/Folic 1 each PO 09/19/24 History [ Tablet] Allergies Allergy/AdvReac Type Severity Reaction Status Date / Time sulfamethoxazole AdvReac Severe Anaphylaxis Verified 09/19/24 06:13 [From Bactrim] trimethoprim [From Bactrim] AdvReac Severe Anaphylaxis Verified 09/19/24 06:13 procaine HCl [From Novocain] AdvReac Nausea & Verified 09/19/24 06:13 Vomiting Exam Osteopathic Statement: *. No significant issues noted on an osteopathic structural exam other than those noted in the History and Physical/Consult. Vital Signs Temp Pulse Resp BP 09/19/24 06:12 97.1 F L 110 H 16 131/86 Intake and Output 09/18/24 09/19/24 09/19/24 22:59 06:59 14:59 Other: Weight 102.058 kg Targeted physical exam is performed this date in general is a well-nourished well-developed female in no acute distress, breathing is nonlabored, heart has a regular and rhythm, abdomen is gravid, on cervical exam she is 2-3/50/-2 station amniotomy is performed and clear fluid was obtained. heart tones are to be category 1 and she is not irvin. Pitocin is at 6. Results Result Diagrams: 09/19/24 06:16 Abnormal Lab Results - Last 24 Hours (Table) 09/19/24 Range/Units 06:16 WBC 11.6 H (3.8-10.6) k/uL Neutrophils # 8.7 H (1.3-7.7) k/uL Assessment and Plan (1) Term Current Visit: No Status: Acute Code(s): Z34.90 - ENCNTR FOR SUPRVSN OF NORMAL , UNSP, UNSP TRIMESTER SNOMED Code(s): 93525369 Plan: Admit to labor and delivery, clear liquids as tolerated Pitocin induction of labor per protocol Analgesia per patient request, discussed epidural, nitrous, Nubain. Anticipate spontaneous vaginal delivery later today.
[2024-09-19] MEDS ORDERED: BENZOCAINE/MENTHOL SPRAY 1 GM/SPRAY AEROSOL TOPICAL PRN (15:03)
[2024-09-19] MEDS ORDERED: diphenhydrAMINE 25 MG CAP PO PRN (15:03)
[2024-09-19] MEDS ORDERED: diphenhydrAMINE 50 MG/ML 1 ML VIAL IVP PRN ×2 (15:03)
[2024-09-19] MEDS ORDERED: HYDROCORTISONE 2.5% RECTAL CREAM 30 GM TUBE RECTAL PRN (15:03)
[2024-09-19] MEDS ORDERED: ZOLPIDEM 5 MG TAB PO PRN (15:03)
[2024-09-19] MEDS ORDERED: diphenhydrAMINE 50 MG CAP PO PRN (15:03)
[2024-09-19] MEDS ORDERED: SIMETHICONE 80 MG CHEWABLE PO PRN (15:03)
[2024-09-19] MEDS ORDERED: LANOLIN CREAM 1 GM TUBE TOPICAL PRN (15:03)
--- NOTE | 2024-09-19 15:07 | P.PROBDLV ---
Vaginal Delivery Note - . Vaginal Delivery Note: Date of service 09/19/2024 Viable male delivered at 1440, weight of 6 pounds 13 ounces 33-year-old G2, P1 at 39-0/7 weeks presents to labor and delivery for induction of labor. Patient was admitted and Pitocin induction of labor was begun. Patient underwent amniotomy and clear fluid was obtained. Patient progressed through labor eventually becoming uncomfortable and requesting epidural. Epidural was placed without difficulty by the anesthesia department. Patient made good progress toward complete dilation. Once completely dilated patient began pushing and had a normal spontaneous vaginal delivery of a viable male in occiput anterior presentation, weight of 6-13, time of 1440, Apgars of 8 and 9 at 1 and 5 minutes respectively. After 2-minute delay the umbilical cord was doubly clamped and cut. Placenta was delivered spontaneously intact with a three-vessel cord being noted. Spontaneous cry it was noted at . On inspection the patient's vaginal vault a first-degree vaginal laceration was appreciated this was repaired in the usual fashion with 3-0 Rapide. After closure hemostasis was noted. Uterus was firm below the umbilicus. All counts were to be correct x 2. Patient and infant tolerated delivery well and are resting comfortably.
[2024-09-20] MEDS: ACETAMINOPHEN TAB 500 MG TAB PO SCH (03:38)
[2024-09-20] MEDS: IBUPROFEN 800 MG TAB PO SCH (03:48)
[2024-09-20] MEDS: SENNOSIDES-DOCUSATE SODIUM 1 EACH TAB PO SCH (03:48)
[2024-09-20 08:33] VITALS: BP 138/80; PULSE 91; RESP 18; TEMP 97.8
--- NOTE | 2024-09-20 09:08 | P.DS ---
Providers Date of admission: 09/19/24 06:08 Expected date of discharge: 09/20/24 Attending physician: Yumiko Medina Primary care physician: Stated None - Discharge Diagnosis(es) (1) Term Current Visit: No Status: Acute (2) Obstetrical laceration, first degree Current Visit: Yes Status: Acute (3) Status post normal vaginal delivery Current Visit: No Status: Acute Hospital Course: This is a 33-year-old G2 now P2 that presented to labor and delivery yesterday on 09/19 for scheduled induction of labor. Patient had been receiving routine care which has been essentially uncomplicated. Patient was 39-0/7 weeks at the time of delivery. Patient was admitted and Pitocin induction of labor was begun patient underwent amniotomy and clear fluid was obtained. Patient did receive an epidural throughout labor. Patient progressed to complete began pushing and had a normal spontaneous vaginal delivery of a viable male infant at 1440, weight of 6 pounds 13 ounces. Patient did sustain a first-degree vaginal laceration during delivery which was repaired in the usual fashion with 3-0 Rapide. Patient's course has been uneventful. In this day #1 she is ambulating and voiding without difficulty. She is tolerating a regular diet without nausea or vomiting. She states her pain is well-controlled. She denies concerns. She would like discharge home at 24 hours of possible. Patient Condition at Discharge: Good Plan - Discharge Summary New Discharge Prescriptions: No Action buPROPion [Wellbutrin] 100 mg PO TID Famotidine [Pepcid] 10 mg PO DAILY Vit No.179/Iron/Folic [ Tablet] 1 each PO Discharge Medication List buPROPion [Wellbutrin] 100 mg PO TID 11/10/18 [History] Famotidine [Pepcid] 10 mg PO DAILY 06/29/21 [History] Vit No.179/Iron/Folic [ Tablet] 1 each PO 09/19/24 [History] Follow up Appointment(s)/Referral(s): Yumiko Medina DO [Doctor of Osteopathic Medicine] - 10/30/24 11:30 am Patient Instructions/Handouts: Vaginal Delivery (GEN), Vaginal Delivery (DC) Activity/Diet/Wound Care/Special Instructions: No tub baths or intercourse until 6 weeks . [id number] ibuprofen 600 mg or 3 tablets every 6 hours as needed for pain. Patient is to schedule a routine visit at 6 weeks. Should she have any concerns prior to this visit she is urged to call the office and be seen prior. Discharge Disposition: HOME SELF-CARE
== END 2024-09-20 15:52 | disposition home or self-care (01) | DRG 807 ==
LOC: 4FBP 06:08
PROVIDERS: ADMIT Obstetrics & Gynecology Obstetrics; ATTEND Obstetrics & Gynecology Obstetrics
PROC: 3E033VJ Introduction of Other Hormone into Peripheral Vein, Percutaneous Approach (ICD-10-PCS; principal; 2024-09-19)
PROC: 10E0XZZ Delivery of Products of Conception, External Approach (ICD-10-PCS; principal; 2024-09-19)
PROC: 0HQ9XZZ Repair Perineum Skin, External Approach (ICD-10-PCS; principal; 2024-09-19)
PROC: 10907ZC Drainage of Amniotic Fluid, Therapeutic from Products of Conception, Via Natural or Artificial Opening (ICD-10-PCS; principal; 2024-09-19)
DX: O99.344 Other mental disorders complicating childbirth (principal); F41.9 Anxiety disorder, unspecified; O70.0 First degree perineal laceration during delivery; Z79.899 Other long term (current) drug therapy; Z88.8 Allergy status to other drugs, medicaments and biological substances; Z88.2 Allergy status to sulfonamides; Z88.4 Allergy status to anesthetic agent; Z3A.39 39 weeks gestation of pregnancy; Z37.0 Single live birth
CPT/HCPCS: 85025; 86850; 86900; 86901